=== PATIENT | female | born 1985 | race Caucasian/White ===

== ENCOUNTER 2018-07-13 21:30 | Emergency (ER) | payer SELFPAY ==
--- NOTE | 2018-07-13 21:49 | EDM.PDOC ---
ED HPI GENERAL MEDICAL PROBLEM - General Chief Complaint: Chest Pain Stated Complaint: NATALIYA JOHN Time Seen by Provider: 07/13/18 21:36 - History of Present Illness INITIAL COMMENTS - FREE TEXT/NARRATIVE: HISTORY AND PHYSICAL: History of present illness: Patient's a 32-year-old female who presents with concern of left clavicular pain she states is been over several weeks she is concerned about the persistence of this she denies trauma denies shortness of breath palpitations diaphoresis nausea vomiting or other complaints. Review of systems: As per history of present illness and below otherwise all systems reviewed and negative. Past medical history: As per history of present illness and as reviewed below otherwise noncontributory. Surgical history: As per history of present illness and as reviewed below otherwise noncontributory. Social history: No reported history of drug or alcohol abuse. Family history: As per history of present illness and as reviewed below otherwise noncontributory. Physical exam: HEENT: Atraumatic, normocephalic, pupils reactive, negative for conjunctival pallor or scleral icterus, mucous membranes moist, throat clear, neck supple, nontender, trachea midline. Lungs: Clear to auscultation, breath sounds equal bilaterally, chest nontender. Heart: S1S2, regular, negative for clicks, rubs, or JVD. Abdomen: Soft, nondistended, nontender. Negative for masses or hepatosplenomegaly. Negative for costovertebral tenderness. Pelvis: Stable nontender. Genitourinary: Deferred. Rectal: Deferred. Extremities: Atraumatic, negative for cords or calf pain. Neurovascular unremarkable. Neuro: Awake, alert, oriented. Cranial nerves II through XII unremarkable. Cerebellum unremarkable. Motor and sensory unremarkable throughout. Exam nonfocal. Diagnostics: Chest x-ray EKG Therapeutics: None Impression: #1 medical screening exam #2 left clavicle pain etiology be determined Definitive disposition and diagnosis as appropriate pending reevaluation and review of above. 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 History: Reports: None Neurological History: Reports: None Psychiatric History: Reports: Anxiety, Depression, Panic Attack, PTSD Endocrine/Metabolic History: Reports: None Hematologic History: Reports: None Immunologic History: Reports: None Oncologic (Cancer) History: Reports: None Dermatologic History: Reports: None - Past Surgical History Head Surgeries/Procedures: Reports: None HEENT Surgical History: Reports: None Cardiovascular Surgical History: Reports: None Respiratory Surgical History: Reports: None GI Surgical History: Reports: None Female Surgical History: Reports: None Endocrine Surgical History: Reports: None Neurological Surgical History: Reports: None 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 Surgical History: Reports: None Oncologic Surgical History: Reports: None Dermatological Surgical History: Reports: None Social & Family History - Family History Family Medical History: Noncontributory - Caffeine Use Caffeine Use: Reports: None ED ROS GENERAL - Review of Systems Review Of Systems: ROS reveals no pertinent complaints other than HPI. ED EXAM, GENERAL - Physical Exam Exam: See Below (See dictation) Course - Orders/Labs/Meds Orders: Active Orders 24 hr Category Date Time Status EKG Documentation Completion [RC] STAT Care 07/13/18 21:39 Active Chest 2V [CR] Stat Exams 07/13/18 21:39 Ordered HCG QUALITATIVE,URINE [URCHEM] Stat Lab 07/13/18 21:40 Ordered Departure - Departure Time of Disposition: 21:48 Disposition: Home, Self-Care 01 Condition: Good Clinical Impression: Encounter for medical screening examination, Pain of left clavicle - Discharge Information *PRESCRIPTION DRUG MONITORING PROGRAM REVIEWED*: Not Applicable *COPY OF PRESCRIPTION DRUG MONITORING REPORT IN PATIENT BEN: Not Applicable Referrals: PCP,None [Primary Care Provider] - Additional Instructions: The following information is given to patients seen in the emergency department who are being discharged to home. This information is to outline your options for follow-up care. We provide all patients seen in our emergency department with a follow-up referral. The need for follow-up, as well as the timing and circumstances, are variable depending upon the specifics of your emergency department visit. If you don't have a primary care physician on staff, we will provide you with a referral. We always advise you to contact your personal physician following an emergency department visit to inform them of the circumstance of the visit and for follow-up with them and/or the need for any referrals to a consulting specialist. The emergency department will also refer you to a specialist when appropriate. This referral assures that you have the opportunity for followup care with a specialist. All of these measure are taken in an effort to provide you with optimal care, which includes your followup. Under all circumstances we always encourage you to contact your private physician who remains a resource for coordinating your care. When calling for followup care, please make the office aware that this follow-up is from your recent emergency room visit. If for any reason you are refused follow-up, please contact the [facility] emergency department at and asked to speak to the emergency department charge nurse. [facility] [address] [place] [phone] /Vishnu as directed follow-up primary care call to schedule routine appointment return as needed as discussed - My Orders Last 24 Hours: My Active Orders 07/13/18 21:39 EKG Documentation Completion [RC] STAT Chest 2V [CR] Stat 07/13/18 21:40 HCG QUALITATIVE,URINE [URCHEM] Stat - Assessment/Plan Last 24 Hours: My Active Orders 07/13/18 21:39 EKG Documentation Completion [RC] STAT Chest 2V [CR] Stat 07/13/18 21:40 HCG QUALITATIVE,URINE [URCHEM] Stat
--- NOTE | 2018-07-15 14:10 | CR ---
EXAM DATE: 07/13/18 PATIENT'S AGE: 32 Patient: VINCE SCHNEIDER Facility: [place], [place] Site . Site : 1985 Study: XRay Chest [id number]/[id number] 10:12:37 PM Ordering Physician: Doctor Sterling Final Report: Indication: Chest pain Technique: PA and lateral views the chest were obtained. Comparison: None Findings: The heart is normal in size. The lungs are clear. No infiltrate, pleural effusion, or pneumothorax is identified. Impression: No acute cardiopulmonary process. Dictated by Kaley Aburto MD @ Jul 13 2018 10:19PM (Electronic Signature) Report Signed by Proxy. CONNIE
== END 2018-07-13 22:42 | disposition home or self-care (01) ==
LOC: MW.ED 21:30
DX: M25.512 Pain in left shoulder (principal)
CPT/HCPCS: 71046; 71046-26; 93005; 99285-25

== ENCOUNTER 2019-02-28 21:11 | Emergency (ER) | payer SELFPAY ==
[2019-02-28] MEDS ORDERED: LORazepam 0.5 MG Tab PO ONE (21:53)
--- NOTE | 2019-02-28 22:05 | EDM.PDOC ---
<Gypsy Lee - Last Filed: 02/28/19 23:41> ED HPI GENERAL MEDICAL PROBLEM - General Chief Complaint: Lower Extremity Injury/Pain Stated Complaint: PT LT LEG HURT Time Seen by Provider: 02/28/19 21:43 - Related Data Allergies Allergy/AdvReac Type Severity Reaction Status Date / Time aspirin Allergy Airway Verified 02/28/19 21:23 Tightness gentamicin Allergy Rash Verified 02/28/19 21:23 Penicillins Allergy Rash Verified 02/28/19 21:23 tramadol Allergy Nausea and Verified 02/28/19 21:23 Vomiting Home Meds: Home Meds Esomeprazole Magnesium [Nexium 24Hr] 1 tab PO BID 06/22/18 [History] Cyclobenzaprine [Flexeril] 10 mg PO DAILY 02/28/19 [History] Review of Systems - Review of Systems Review Of Systems: ROS reveals no pertinent complaints other than HPI. ED EXAM, GENERAL - Physical Exam Exam: See Below Course - Vital Signs Last Recorded V/S: Last Vital Signs Temp 36.3 C 02/28/19 21:24 Pulse 75 03/01/19 00:22 Resp 18 03/01/19 00:22 BP 142/82 H 03/01/19 00:22 Pulse Ox 100 03/01/19 00:22 - Orders/Labs/Meds Meds: Medications Discontinued Medications Generic Name Dose Route Start Last Admin Trade Name Lilliam PRN Reason Stop Dose Admin Lorazepam 0.5 mg 02/28/19 21:53 02/28/19 22:10 Ativan PO 02/28/19 21:54 0.5 mg ONETIME ONE Administration Departure - Departure Time of Disposition: 23:42 Disposition: Home, Self-Care 01 Clinical Impression: Thrombophlebitis - Discharge Information Instructions: Venous Thromboembolism Prevention Referrals: PCP,None [Primary Care Provider] - Forms: ED Department Discharge Additional Instructions: The following information is given to patients seen in the emergency department who are being discharged to home. This information is to outline your options for follow-up care. We provide all patients seen in our emergency department with a follow-up referral. The need for follow-up, as well as the timing and circumstances, are variable depending upon the specifics of your emergency department visit. If you don't have a primary care physician on staff, we will provide you with a referral. We always advise you to contact your personal physician following an emergency department visit to inform them of the circumstance of the visit and for follow-up with them and/or the need for any referrals to a consulting specialist. The emergency department will also refer you to a specialist when appropriate. This referral assures that you have the opportunity for follow-up care with a specialist. All of these measure are taken in an effort to provide you with optimal care, which includes your follow-up. Under all circumstances we always encourage you to contact your private physician who remains a resource for coordinating your care. When calling for follow-up care, please make the office aware that this follow-up is from your recent emergency room visit. If for any reason you are refused follow-up, please contact the [facility] Emergency Department at and asked to speak to the emergency department charge nurse. [facility] [address] [place] [address] [place] [address] 1. Rest, ice, elevate the affected extremity. You can apply ice and/or heat 15 minutes on, 15 minutes off. 2. Tylenol and/or Ibuprofen as directed for pain management or discomfort. 3. Follow up with your primary care provider as discussed. Return to the ED as needed and as discussed. <Nathalia Cabrera - Last Filed: 03/02/19 10:47> ED HPI GENERAL MEDICAL PROBLEM - General Source of Information: Reports: Patient History Limitations: Reports: No Limitations - History of Present Illness INITIAL COMMENTS - FREE TEXT/NARRATIVE: HISTORY AND PHYSICAL: History of present illness: Patient is a 33-year-old female who presents to the ED today with concern of right calf pain and swelling 2 days. Patient states that the pain isn't worse with warm water. Patient states she was trying to take a bath to alleviate the pain thinking it was a calf cramp, but the past wanted had made the pain worse. She describes the pain as throbbing. Patient states she is able to palpate a small area that hurts on her calf muscle. Patient denies any history of DVT or blood clot. Patient denies any injury to the area. Patient rates her pain a 7 out of 10. Patient has not taken anything for her discomfort at home. Patient denies fever, chills, chest pain, shortness of breath, or cough. Denies headache, neck stiff ness, change in vision, syncope, or near syncope. Denies nausea, vomiting, abdominal pain, diarrhea, constipation, or dysuria. Has not noted any blood in urine or stool. Patient has been eating and drinking appropriately. Review of systems: As per history of present illness and below otherwise all systems reviewed and negative. Past medical history: As per history of present illness and as reviewed below otherwise noncontributory. Surgical history: As per history of present illness and as reviewed below otherwise noncontributory. Social history: See social history for further information Family history: As per history of present illness and as reviewed below otherwise noncontributory. Physical exam: General: Patient is alert, oriented, and in no acute distress. Patient sitting comfortably on exam table but is anxious appearing. HEENT: Atraumatic, normocephalic, pupils equal and reactive bilaterally, negative for conjunctival pallor or scleral icterus, mucous membranes moist, TMs normal bilaterally, throat clear, neck supple, nontender, trachea midline. No drooling or trismus noted. No meningeal signs. No hot potato voice noted. Lungs: Clear to auscultation, breath sounds equal bilaterally, chest nontender. Heart: S1S2, regular rate and rhythm without overt murmur Abdomen: Soft, nondistended, nontender. Negative for masses or hepatosplenomegaly. Negative for costovertebral tenderness. Pelvis: Stable nontender. Genitourinary: Deferred. Rectal: Deferred. Skin: Intact, warm, dry. No lesions or rashes noted. Extremities: Atraumatic, Neurovascular unremarkable. There is a 2cm round area of inflammation with pain to palpation without erythema of the right mid calf area. Dorsalis pedis and posterior tibial pulses are grossly intact. Capillary refill less than 2 seconds. Neuro: Awake, alert, oriented. Cranial nerves II through XII unremarkable. Cerebellum unremarkable. Motor and sensory unremarkable throughout. Exam nonfocal. Notes: On exam, patient does appear to have a superficial thrombophlebitis. Will do imaging today. Dr. Lee has assumed care of this patient and will follow all remaining diagnostics and disposition for patient. Diagnostics: Lower extremity venous doppler ultrasound, right Therapeutics: Ativan Prescription: None Impression: Thrombophlebitis Plan: 1. Rest, ice, elevate the affected extremity. You can apply ice and/or heat 15 minutes on, 15 minutes off. 2. Tylenol and/or Ibuprofen as directed for pain management or discomfort. 3. Follow up with your primary care provider as discussed. Return to the ED as needed and as discussed. Definitive disposition and diagnosis as appropriate pending reevaluation and review of above. 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 History: Reports: None Neurological History: Reports: None Psychiatric History: Reports: Anxiety, Depression, Panic Attack, PTSD Endocrine/Metabolic History: Reports: None Hematologic History: Reports: None Immunologic History: Reports: None Oncologic (Cancer) History: Reports: None Dermatologic History: Reports: None - Infectious Disease History Infectious Disease History: Reports: None - Past Surgical History Head Surgeries/Procedures: Reports: None HEENT Surgical History: Reports: Adenoidectomy, Oral Surgery, Tonsillectomy Cardiovascular Surgical History: Reports: None Respiratory Surgical History: Reports: None GI Surgical History: Reports: None Female Surgical History: Reports: Tubal Ligation Endocrine Surgical History: Reports: None Neurological Surgical History: Reports: None 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 Surgical History: Reports: None Oncologic Surgical History: Reports: None Dermatological Surgical History: Reports: None Social & Family History - Family History Family Medical History: Noncontributory - Tobacco Use Smoking Status *Q: Never Smoker - Caffeine Use Caffeine Use: Reports: Coffee, Soda - Recreational Drug Use Recreational Drug Use: No Review of Systems - Review of Systems Review Of Systems: ROS reveals no pertinent complaints other than HPI. ED EXAM, GENERAL - Physical Exam Exam: See Below (See dictation)
--- NOTE | 2019-02-28 23:38 | US ---
INDICATION: Leg pain and swelling TECHNIQUE: Ultrasound venous duplex lower right extremity. Compression venous exam was performed using ruth-scale, color Doppler, and spectral Doppler imaging. COMPARISON: None. FINDINGS: Sonographic imaging demonstrates the right common femoral, deep femoral, superficial femoral, popliteal, posterior tibial and greater saphenous to be fully compressible with normal color Doppler blood flow. IMPRESSION: Normal right lower extremity venous ultrasound, no sign of deep venous thrombosis. Dictated by Konrad Sotelo MD @ Feb 28 2019 11:29PM Signed by Dr. Konrad Sotelo @ Feb 28 2019 11:36PM
== END 2019-03-01 00:23 | disposition home or self-care (01) ==
LOC: MW.ED 21:11
DX: I80.3 Phlebitis and thrombophlebitis of lower extremities, unspecified (principal); Z88.0 Allergy status to penicillin; Z88.8 Allergy status to other drugs, medicaments and biological substances; Z88.1 Allergy status to other antibiotic agents
CPT/HCPCS: 93971; 99283; A9270

== ENCOUNTER 2019-07-15 15:23 | Emergency (ER) | payer OTHER ==
--- NOTE | 2019-07-15 15:31 | EDM.PDOC ---
ED HPI GENERAL MEDICAL PROBLEM - General Chief Complaint: Upper Extremity Injury/Pain Stated Complaint: FINGER PAIN Time Seen by Provider: 07/15/19 15:30 Source of Information: Reports: Patient History Limitations: Reports: No Limitations - History of Present Illness INITIAL COMMENTS - FREE TEXT/NARRATIVE: HISTORY AND PHYSICAL: History of present illness: Patient is a 33-year-old female who presents to the emergency room today with complaints of left fifth distal digit pain. She states while at work to a case of soda had fallen, resulting in a crush injury. Does have some early bruising noted to the distal tip of the finger. Denies any other extremity involvement. Has no systemic complaints. Review of systems: As per history of present illness and below otherwise all systems reviewed and negative. Past medical history: As per history of present illness and as reviewed below otherwise noncontributory. Surgical history: As per history of present illness and as reviewed below otherwise noncontributory. Social history: See social history for further information Family history: As per history of present illness and as reviewed below otherwise noncontributory. Physical exam: General: Well-developed and well-nourished 33-year-old female. Alert and oriented. Nontoxic appearing and in no acute distress. HEENT: Atraumatic, normocephalic, pupils equal and reactive bilaterally, negative for conjunctival pallor or scleral icterus, mucous membranes moist, trachea midline. No drooling or trismus noted. No meningeal signs. No hot potato voice noted. Lungs: Clear to auscultation, breath sounds equal bilaterally, chest nontender. Heart: S1S2, regular rate and rhythm without overt murmur Abdomen: Soft, nondistended, nontender. Negative for masses. Skin: Early bruising noted to the distal tip of the left fifth digit. Nail bed is intact. No fluid or blood collection under the nail. Otherwise skin is Intact , warm, dry. No lesions or rashes noted. Extremities: Pain with palpation to the DIP to the distal tip of the left fifth digit. moves all extremities per self without difficulty or deficits. Neurovascular unremarkable. Neuro: Awake, alert, oriented. Cranial nerves II through XII unremarkable. Cerebellum unremarkable. Motor and sensory unremarkable throughout. Exam nonfocal. Notes: X-ray shows tiny lucency at the tip of the tuft on the fifth distal phalanx. A cage splint was applied for comfort purposes. Supportive care measures were reviewed and discussed. Voices understanding and is agreeable to plan of care. Denies any further questions or concerns at this time. Diagnostics: X-ray Therapeutics: Spoon Splint Prescription: Tylenol #3 (#15) Impression: Tuft Fracture Plan: 1. Rest, ice, elevate the affected extremity. Please wear the splint as directed. 2. Tylenol and/or Ibuprofen as needed for pain management. 3. Follow up with the Orthopedic provider as we discussed. Return to the ED as needed and as discussed. Definitive disposition and diagnosis as appropriate pending reevaluation and review of above. Onset: Today left fifth digit Pain Score (Numeric/FACES): 8 - Related Data Allergies Allergy/AdvReac Type Severity Reaction Status Date / Time aspirin Allergy Airway Verified 07/15/19 15:34 Tightness gentamicin Allergy Rash Verified 07/15/19 15:34 Penicillins Allergy Rash Verified 07/15/19 15:34 tramadol Allergy Nausea and Verified 07/15/19 15:34 Vomiting Home Meds: Home Meds Esomeprazole Magnesium [Nexium 24Hr] 1 tab PO BID 06/22/18 [History] Cyclobenzaprine [Flexeril] 0.5 tab PO DAILY 02/28/19 [History] Acetaminophen with Codeine [Tylenol with Codeine #3 Tablet] 1 each PO Q6HR PRN # 15 tablet 07/15/19 [Rx] Past Medical History HEENT History: Reports: None Cardiovascular History: Reports: None Respiratory History: Reports: None Gastrointestinal History: Reports: GERD Genitourinary History: Reports: None [employer]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 History: Reports: None Neurological History: Reports: None Psychiatric History: Reports: Anxiety, Depression, Panic Attack, PTSD Endocrine/Metabolic History: Reports: None Hematologic History: Reports: None Immunologic History: Reports: None Oncologic (Cancer) History: Reports: None Dermatologic History: Reports: None - Infectious Disease History Infectious Disease History: Reports: None - Past Surgical History Head Surgeries/Procedures: Reports: None HEENT Surgical History: Reports: Adenoidectomy, Oral Surgery, Tonsillectomy Cardiovascular Surgical History: Reports: None Respiratory Surgical History: Reports: None GI Surgical History: Reports: None Female Surgical History: Reports: Tubal Ligation Endocrine Surgical History: Reports: None Neurological Surgical History: Reports: None 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 Surgical History: Reports: None Oncologic Surgical History: Reports: None Dermatological Surgical History: Reports: None Social & Family History - Family History Family Medical History: Noncontributory - Caffeine Use Caffeine Use: Reports: Coffee, Soda Review of Systems - Review of Systems Review Of Systems: ROS reveals no pertinent complaints other than HPI. ED EXAM, GENERAL - Physical Exam Exam: See Below (See dictation) Course - Vital Signs Last Recorded V/S: Last Vital Signs Temp 96.2 F 07/15/19 15:34 Pulse 84 07/15/19 15:34 Resp 18 07/15/19 15:34 BP 142/97 H 07/15/19 15:34 Pulse Ox 98 07/15/19 15:34 - Orders/Labs/Meds Orders: Active Orders 24 hr Category Date Time Status Fingers Fifth Digit Lt F4 [CR] Stat Exams 07/15/19 15:39 Taken DME for Discharge [COMM] Stat Oth 07/15/19 16:19 Ordered Departure - Departure Time of Disposition: 16:19 Disposition: Home, Self-Care 01 Clinical Impression: Crush injury, Closed fracture of tuft of distal phalanx of finger - Discharge Information Prescriptions: Acetaminophen with Codeine [Tylenol with Codeine #3 Tablet] 1 each PO Q6HR PRN # 15 tablet PRN Reason: Pain Instructions: Crush Injury of the Hand, [id number] Referrals: PCP,Unknown [Primary Care Provider] - Forms: ED Department Discharge Additional Instructions: The following information is given to patients seen in the emergency department who are being discharged to home. This information is to outline your options for follow-up care. We provide all patients seen in our emergency department with a follow-up referral. The need for follow-up, as well as the timing and circumstances, are variable depending upon the specifics of your emergency department visit. If you don't have a primary care physician on staff, we will provide you with a referral. We always advise you to contact your personal physician following an emergency department visit to inform them of the circumstance of the visit and for follow-up with them and/or the need for any referrals to a consulting specialist. The emergency department will also refer you to a specialist when appropriate. This referral assures that you have the opportunity for follow-up care with a specialist. All of these measure are taken in an effort to provide you with optimal care, which includes your follow-up. Under all circumstances we always encourage you to contact your private physician who remains a resource for coordinating your care. When calling for follow-up care, please make the office aware that this follow-up is from your recent emergency room visit. If for any reason you are refused follow-up, please contact the [facility] Emergency Department at and asked to speak to the emergency department charge nurse. [facility] [address] [place] [id number] [place] [address] 1. Rest, ice, elevate the affected extremity. Please wear the splint as directed. 2. Tylenol and/or Ibuprofen as needed for pain management. 3. Follow up with the Orthopedic provider as we discussed. Return to the ED as needed and as discussed. - My Orders Last 24 Hours: My Active Orders 07/15/19 15:39 Fingers Fifth Digit Lt F4 [CR] Stat 07/15/19 16:19 DME for Discharge [COMM] Stat - Assessment/Plan Last 24 Hours: My Active Orders 07/15/19 15:39 Fingers Fifth Digit Lt F4 [CR] Stat 07/15/19 16:19 DME for Discharge [COMM] Stat
[2019-07-15] MEDS ORDERED: Acetaminophen/HYDROcodone 325-5 MG Tab PO ONE (16:41)
--- NOTE | 2019-07-15 16:51 | CR ---
Indication: Injury Technique: Three views of the left 5th digit Comparison: None available Findings: Bones: A tiny lucency at the tip of the tuft of the 5th distal phalanx consistent with a nondisplaced fracture. A small osseous protuberance in the distal aspect of the distal phalanx could be projectional. No dislocation. Joint spaces: Unremarkable. Soft tissues: Unremarkable. Impression: A small fracture at the tip of the 5th distal phalanx. Dictated by Eros Khan MD @ 07/15/2019 4:32:32 PM Dictated by: Eros Khan MD @ 07/15/2019 16:33:19 (Electronically Signed)
== END 2019-07-15 16:47 | disposition home or self-care (01) ==
LOC: MW.ED 15:23
DX: S62.637A Displaced fracture of distal phalanx of left little finger, initial encounter for closed fracture (principal); K21.9 Gastro-esophageal reflux disease without esophagitis; Z88.6 Allergy status to analgesic agent; Z88.0 Allergy status to penicillin; Z88.5 Allergy status to narcotic agent; Z88.1 Allergy status to other antibiotic agents; Z79.899 Other long term (current) drug therapy; W20.8XXA Other cause of strike by thrown, projected or falling object, initial encounter; Y99.0 Civilian activity done for income or pay
CPT/HCPCS: 73140; 99283; A9270; 99282

== ENCOUNTER 2019-08-25 20:06 | Emergency (ER) | payer OTHER ==
[2019-08-25] MEDS ORDERED: Ibuprofen 800 MG Tab PO ONE (20:21)
--- NOTE | 2019-08-25 20:27 | EDM.PDOC ---
ED HPI GENERAL MEDICAL PROBLEM - General Chief Complaint: Lower Extremity Injury/Pain Stated Complaint: FELL AND HURT RIGHT ANKLE Time Seen by Provider: 08/25/19 20:07 - History of Present Illness INITIAL COMMENTS - FREE TEXT/NARRATIVE: HISTORY AND PHYSICAL: History of present illness: Patient is a 33-year-old female who presents from her job where she misstepped getting off a 1 foot podium and rolled her ankle falling to the ground. She says she heard a pop at her right ankle and there is swelling there and she has pain localized to that region. She did not hit her head pass out or black out and has no upper extremity complaints and no proximal hip thigh pain. She does have a small abrasion on her right knee but she says she is not concerned about that and her knee does not hurt. She has no numbness or tingling in her distal foot or toes and was in her usual state of good health with no systemic issues when this event occurred. She has a history of a bilateral tubal ligation and denies . She did not take any pain medication prior to coming here. The patient denies any head neck or back pain. Review of systems: As per history of present illness and below otherwise all systems reviewed and negative. Past medical history: As per history of present illness and as reviewed below otherwise noncontributory. Surgical history: As per history of present illness and as reviewed below otherwise noncontributory. Social history: No reported history of drug or alcohol abuse. Family history: As per history of present illness and as reviewed below otherwise noncontributory. Physical exam: General: Well-developed well-nourished mildly overweight female who is nontoxic and vital signs were noted by me. HEENT: Atraumatic, normocephalic, negative for conjunctival pallor or scleral icterus, mucous membranes moist, throat clear, neck supple, nontender, trachea midline. Lungs: Clear to auscultation, breath sounds equal bilaterally, chest nontender. Heart: S1S2, regular, rate and rhythm no overt murmurs Abdomen: Soft, nondistended, nontender. NABS Pelvis: Stable nontender. No lateral hip tenderness on the right Genitourinary: Deferred. Rectal: Deferred. Extremities: Atraumatic full range of motion of all extremities with the exception of the right lateral ankle where there is diffuse soft tissue swelling and tenderness. The medial ankle has no swelling or deformity and the alignment appears to be intact at the ankle. There is no proximal tib-fib knee thigh or hip tenderness on the right and there is a superficial abrasion at dorsal aspect of the patella area without bony defect soft tissue swelling ecchymosis or deformity. Patient has no tenderness at the right knee. The distal foot including the fifth metatarsal is nontender without defects or deformities as are the toes ball of the foot and calcaneus. Neurovascular unremarkable. Neuro: Awake, alert, oriented. Cranial nerves II through XII unremarkable. Cerebellum unremarkable. Motor and sensory unremarkable throughout. Exam nonfocal. Diagnostics: X-ray right ankle Therapeutics: Ibuprofen, ortho boot and crutches Impression: Right ankle injury Definitive disposition and diagnosis as appropriate pending reevaluation and review of above. - Related Data Allergies Allergy/AdvReac Type Severity Reaction Status Date / Time aspirin Allergy Airway Verified 08/25/19 20:09 Tightness gentamicin Allergy Rash Verified 08/25/19 20:09 Penicillins Allergy Rash Verified 08/25/19 20:09 tramadol Allergy Nausea and Verified 08/25/19 20:09 Vomiting Home Meds: Home Meds Esomeprazole Magnesium [Nexium 24Hr] 20 tab PO BID 06/22/18 [History] Cyclobenzaprine [Flexeril] 5 mg PO DAILY 02/28/19 [History] Past Medical History HEENT History: Reports: None Cardiovascular History: Reports: None Respiratory History: Reports: None Gastrointestinal History: Reports: GERD Genitourinary History: Reports: None 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 History: Reports: None Neurological History: Reports: None Psychiatric History: Reports: Anxiety, Depression, Panic Attack, PTSD Endocrine/Metabolic History: Reports: None Hematologic History: Reports: None Immunologic History: Reports: None Oncologic (Cancer) History: Reports: None Dermatologic History: Reports: None - Infectious Disease History Infectious Disease History: Reports: None - Past Surgical History Head Surgeries/Procedures: Reports: None HEENT Surgical History: Reports: Adenoidectomy, Oral Surgery, Tonsillectomy Cardiovascular Surgical History: Reports: None Respiratory Surgical History: Reports: None GI Surgical History: Reports: None Female Surgical History: Reports: Tubal Ligation Endocrine Surgical History: Reports: None Neurological Surgical History: Reports: None 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 Surgical History: Reports: None Oncologic Surgical History: Reports: None Dermatological Surgical History: Reports: None Social & Family History - Family History Family Medical History: Noncontributory - Tobacco Use Smoking Status *Q: Never Smoker - Caffeine Use Caffeine Use: Reports: Coffee, Soda - Recreational Drug Use Recreational Drug Use: No Review of Systems - Review of Systems Review Of Systems: ROS reveals no pertinent complaints other than HPI. ED EXAM, GENERAL - Physical Exam Exam: See Below (see Dictation) Course - Vital Signs Last Recorded V/S: Last Vital Signs Temp 36.1 C 08/25/19 20:09 Pulse 103 H 08/25/19 20:09 Resp 18 08/25/19 20:09 BP 137/87 08/25/19 20:09 Pulse Ox 94 L 08/25/19 20:09 - Orders/Labs/Meds Orders: Active Orders 24 hr Category Date Time Status DME for Discharge [COMM] Stat Oth 08/25/19 20:59 Ordered Meds: Medications Discontinued Medications Generic Name Dose Route Start Last Admin Trade Name Freq PRN Reason Stop Dose Admin Ibuprofen 800 mg 08/25/19 20:21 08/25/19 20:28 Motrin PO 08/25/19 20:22 800 mg ONETIME ONE Administration Departure - Departure Time of Disposition: 21:00 Disposition: Home, Self-Care 01 Condition: Good Clinical Impression: Right ankle injury Qualifiers: Encounter type: initial encounter Qualified Code(s): S99.911A - Unspecified injury of right ankle, initial encounter - Discharge Information Referrals: Vickey Christianson MD [Primary Care Provider] - Forms: ED Department Discharge Additional Instructions: The following information is given to patients seen in the emergency department who are being discharged to home. This information is to outline your options for follow-up care. We provide all patients seen in our emergency department with a follow-up referral. The need for follow-up, as well as the timing and circumstances, are variable depending upon the specifics of your emergency department visit. If you don't have a primary care physician on staff, we will provide you with a referral. We always advise you to contact your personal physician following an emergency department visit to inform them of the circumstance of the visit and for follow-up with them and/or the need for any referrals to a consulting specialist. The emergency department will also refer you to a specialist when appropriate. This referral assures that you have the opportunity for followup care with a specialist. All of these measure are taken in an effort to provide you with optimal care, which includes your followup. Under all circumstances we always encourage you to contact your private physician who remains a resource for coordinating your care. When calling for followup care, please make the office aware that this follow-up is from your recent emergency room visit. If for any reason you are refused follow-up, please contact the [facility] emergency department at and ask to speak to the emergency department charge nurse. [facility] - [facility] Professional Building [address] [place] [address] Dr Núñez, Orthopedist [facility] [address] [place] [address] Dr Garcia - Dr Candelario - Dr [facility] [address] [place] [address] [facility] [address] [place] [address] Ice and elevate the area and do not weight-bear until you're followed up in the clinic. Please call our orthopedics clinic to see if we have coverage for follow -up and if not use the other resources given to above for follow-up care. Use [id number] Tylenol and ibuprofen for pain management and wear the orthopedic you have been given at all times loosening or removing at sleep time his crutches and do not weight-bear until you are followed up. Return to ER as needed and as discussed - My Orders Last 24 Hours: My Active Orders 08/25/19 20:59 DME for Discharge [COMM] Stat - Assessment/Plan Last 24 Hours: My Active Orders 08/25/19 20:59 DME for Discharge [COMM] Stat
--- NOTE | 2019-08-25 20:53 | CR ---
Indication: Fall Technique: Three views of the right ankle were obtained. Comparison: None Findings: The ankle mortise is intact. The talar dome is intact. A small plantar calcaneal spur is identified. No fracture or subluxation is identified. Impression: No acute identified. Dictated by Kaley Aburto MD @ Aug 25 2019 8:49PM Signed by Dr. Kaley Aburto @ Aug 25 2019 8:50PM
== END 2019-08-25 21:21 | disposition home or self-care (01) ==
LOC: MW.ED 20:06
DX: S99.911A Unspecified injury of right ankle, initial encounter (principal); S80.211A Abrasion, right knee, initial encounter; K21.9 Gastro-esophageal reflux disease without esophagitis; Z88.0 Allergy status to penicillin; Z88.1 Allergy status to other antibiotic agents; Z88.5 Allergy status to narcotic agent; Z88.6 Allergy status to analgesic agent; W17.89XA Other fall from one level to another, initial encounter; X50.1XXA Overexertion from prolonged static or awkward postures, initial encounter; Y93.89 Activity, other specified
CPT/HCPCS: 73610; 99283; A9270

== ENCOUNTER 2019-10-29 22:55 | Emergency (ER) | payer SELFPAY ==
--- NOTE | 2019-10-29 23:07 | EDM.PDOC ---
ED HPI GENERAL MEDICAL PROBLEM - General Chief Complaint: Chest Pain Stated Complaint: CHEST DISCOMFORT Time Seen by Provider: 10/29/19 23:01 - History of Present Illness INITIAL COMMENTS - FREE TEXT/NARRATIVE: HISTORY AND PHYSICAL: History of present illness: Patient is a 34-year-old white female presents with concern chest pain 3 days his vaguely described without associated shortness breath palpitations nausea vomiting or diaphoresis denies trauma Review of systems: As per history of present illness and below otherwise all systems reviewed and negative. Past medical history: As per history of present illness and as reviewed below otherwise noncontributory. Surgical history: As per history of present illness and as reviewed below otherwise noncontributory. Social history: No reported history of drug or alcohol abuse. Family history: As per history of present illness and as reviewed below otherwise noncontributory. Physical exam: HEENT: Atraumatic, normocephalic, pupils reactive, negative for conjunctival pallor or scleral icterus, mucous membranes moist, throat clear, neck supple, nontender, trachea midline. Lungs: Clear to auscultation, breath sounds equal bilaterally, chest nontender. Heart: S1S2, regular, negative for clicks, rubs, or JVD. Abdomen: Soft, nondistended, nontender. Negative for masses or hepatosplenomegaly. Negative for costovertebral tenderness. Pelvis: Stable nontender. Genitourinary: Deferred. Rectal: Deferred. Extremities: Atraumatic, negative for cords or calf pain. Neurovascular unremarkable. Neuro: Awake, alert, oriented. Cranial nerves II through XII unremarkable. Cerebellum unremarkable. Motor and sensory unremarkable throughout. Exam nonfocal. Diagnostics: CBC CMP troponin PT/INR chest x-ray EKG Therapeutics: IV O2 monitor Impression: 1 atypical chest pain Definitive disposition and diagnosis as appropriate pending reevaluation and review of above. chest Pain Score (Numeric/FACES): 7 - Related Data Allergies Allergy/AdvReac Type Severity Reaction Status Date / Time aspirin Allergy Airway Verified 10/29/19 22:57 Tightness gentamicin Allergy Rash Verified 10/29/19 22:57 Penicillins Allergy Rash Verified 10/29/19 22:57 tramadol Allergy Nausea and Verified 10/29/19 22:57 Vomiting Home Meds: Home Meds Esomeprazole Magnesium [Nexium 24Hr] 20 tab PO BID 06/22/18 [History] Past Medical History HEENT History: Reports: None Cardiovascular History: Reports: None Respiratory History: Reports: None Gastrointestinal History: Reports: GERD Genitourinary History: Reports: None 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 History: Reports: None 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 History: Reports: None Neurological History: Reports: None Psychiatric History: Reports: Anxiety, Depression, Panic Attack, PTSD Endocrine/Metabolic History: Reports: None Hematologic History: Reports: None Immunologic History: Reports: None Oncologic (Cancer) History: Reports: None Dermatologic History: Reports: None - Infectious Disease History Infectious Disease History: Reports: Chicken Pox - Past Surgical History Head Surgeries/Procedures: Reports: None HEENT Surgical History: Reports: Adenoidectomy, Oral Surgery, Tonsillectomy Cardiovascular Surgical History: Reports: None Respiratory Surgical History: Reports: None GI Surgical History: Reports: None Female Surgical History: Reports: Tubal Ligation Endocrine Surgical History: Reports: None Neurological Surgical History: Reports: None 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 Surgical History: Reports: None Oncologic Surgical History: Reports: None Dermatological Surgical History: Reports: None Social & Family History - Family History Family Medical History: Noncontributory - Caffeine Use Caffeine Use: Reports: Coffee, Soda - Recreational Drug Use Recreational Drug Use: No ED ROS GENERAL - Review of Systems Review Of Systems: Comprehensive ROS is negative, except as noted in HPI. ED EXAM, GENERAL - Physical Exam Exam: See Below (Dictation) Course - Vital Signs Last Recorded V/S: Last Vital Signs Temp 35.7 C 10/29/19 22:58 Pulse 83 10/29/19 22:58 Resp 18 10/29/19 22:58 BP 146/87 H 10/29/19 22:58 Pulse Ox 100 10/29/19 22:58 - Orders/Labs/Meds Orders: Active Orders 24 hr Category Date Time Status EKG Documentation Completion [RC] STAT Care 10/29/19 22:56 Active Labs: Laboratory Tests 10/29/19 10/29/19 10/29/19 Range/Units 23:02 23:02 23:02 WBC 7.57 (4.0-11.0) K/uL RBC 4.91 (4.30-5.90) M/uL Hgb 13.8 (12.0-16.0) g/dL Hct 42.2 (36.0-46.0) % MCV 85.9 (80.0-98.0) fL MCH 28.1 (27.0-32.0) pg MCHC 32.7 (31.0-37.0) g/dL RDW Std Deviation 44.3 (28.0-62.0) fl RDW Coeff of Ashutosh 14 (11.0-15.0) % Plt Count 266 (150-400) K/uL MPV 11.10 (7.40-12.00) fL Neut % (Auto) 40.9 L (48.0-80.0) % Lymph % (Auto) 48.5 H (16.0-40.0) % [place] % (Auto) 8.5 (0.0-15.0) % Eos % (Auto) 1.8 (0.0-7.0) % Baso % (Auto) 0.3 (0.0-1.5) % Neut # (Auto) 3.1 (1.4-5.7) K/uL Lymph # (Auto) 3.7 H (0.6-2.4) K/uL [place] # (Auto) 0.6 (0.0-0.8) K/uL Eos # (Auto) 0.1 (0.0-0.7) K/uL Baso # (Auto) 0.0 (0.0-0.1) K/uL Nucleated RBC % 0.0 /100WBC Nucleated RBCs # 0 K/uL INR 0.92 Sodium 143 (136-145) mmol/L Potassium 3.8 (3.5-5.1) mmol/L Chloride 108 H (98-107) mmol/L Carbon Dioxide 28.2 (21.0-32.0) mmol/L BUN 12 (7.0-18.0) mg/dL Creatinine 0.8 (0.6-1.0) mg/dL Est Cr Clr Drug Dosing 78.37 mL/min Estimated GFR (MDRD) > 60.0 ml/min Glucose 115 H (74-106) mg/dL Calcium 8.6 (8.5-10.1) mg/dL Total Bilirubin 0.3 (0.2-1.0) mg/dL AST 23 (15-37) IU/L ALT 68 H (14-63) IU/L Alkaline Phosphatase 76 (46-116) U/L Troponin I < 0.050 (0.000-0.056) ng/mL Total Protein 7.2 (6.4-8.2) g/dL Albumin 3.8 (3.4-5.0) g/dL Globulin 3.4 (2.6-4.0) g/dL Albumin/Globulin Ratio 1.1 (0.9-1.6) Urine Color Urine Appearance Urine pH (5.0-8.0) Ur Specific [place] (1.001-1.035) Urine Protein (NEGATIVE) mg/dL Urine Glucose (UA) (NEGATIVE) mg/dL Urine Ketones (NEGATIVE) mg/dL Urine Occult Blood (NEGATIVE) Urine Nitrite (NEGATIVE) Urine Bilirubin (NEGATIVE) Urine Urobilinogen (<2.0) EU/dL Ur Leukocyte Esterase (NEGATIVE) 10/29/19 Range/Units 23:03 WBC (4.0-11.0) K/uL RBC (4.30-5.90) M/uL Hgb (12.0-16.0) g/dL Hct (36.0-46.0) % MCV (80.0-98.0) fL MCH (27.0-32.0) pg MCHC (31.0-37.0) g/dL RDW Std Deviation (28.0-62.0) fl RDW Coeff of Ashutosh (11.0-15.0) % Plt Count (150-400) K/uL MPV (7.40-12.00) fL Neut % (Auto) (48.0-80.0) % Lymph % (Auto) (16.0-40.0) % [place] % (Auto) (0.0-15.0) % Eos % (Auto) (0.0-7.0) % Baso % (Auto) (0.0-1.5) % Neut # (Auto) (1.4-5.7) K/uL Lymph # (Auto) (0.6-2.4) K/uL [place] # (Auto) (0.0-0.8) K/uL Eos # (Auto) (0.0-0.7) K/uL Baso # (Auto) (0.0-0.1) K/uL Nucleated RBC % /100WBC Nucleated RBCs # K/uL INR Sodium (136-145) mmol/L Potassium (3.5-5.1) mmol/L Chloride (98-107) mmol/L Carbon Dioxide (21.0-32.0) mmol/L BUN (7.0-18.0) mg/dL Creatinine (0.6-1.0) mg/dL Est Cr Clr Drug Dosing mL/min Estimated GFR (MDRD) ml/min Glucose (74-106) mg/dL Calcium (8.5-10.1) mg/dL Total Bilirubin (0.2-1.0) mg/dL AST (15-37) IU/L ALT (14-63) IU/L Alkaline Phosphatase (46-116) U/L Troponin I (0.000-0.056) ng/mL Total Protein (6.4-8.2) g/dL Albumin (3.4-5.0) g/dL Globulin (2.6-4.0) g/dL Albumin/Globulin Ratio (0.9-1.6) Urine Color YELLOW Urine Appearance CLEAR Urine pH 6.0 (5.0-8.0) Ur Specific [place] 1.025 (1.001-1.035) Urine Protein NEGATIVE (NEGATIVE) mg/dL Urine Glucose (UA) NEGATIVE (NEGATIVE) mg/dL Urine Ketones NEGATIVE (NEGATIVE) mg/dL Urine Occult Blood NEGATIVE (NEGATIVE) Urine Nitrite NEGATIVE (NEGATIVE) Urine Bilirubin NEGATIVE (NEGATIVE) Urine Urobilinogen 1.0 (<2.0) EU/dL Ur Leukocyte Esterase NEGATIVE (NEGATIVE) Departure - Departure Time of Disposition: 00:20 Disposition: Home, Self-Care 01 Condition: Good Clinical Impression: Atypical chest pain - Discharge Information Referrals: PCP,None [Primary Care Provider] - Forms: ED Department Discharge Additional Instructions: The following information is given to patients seen in the emergency department who are being discharged to home. This information is to outline your options for follow-up care. We provide all patients seen in our emergency department with a follow-up referral. The need for follow-up, as well as the timing and circumstances, are variable depending upon the specifics of your emergency department visit. If you don't have a primary care physician on staff, we will provide you with a referral. We always advise you to contact your personal physician following an emergency department visit to inform them of the circumstance of the visit and for follow-up with them and/or the need for any referrals to a consulting specialist. The emergency department will also refer you to a specialist when appropriate. This referral assures that you have the opportunity for followup care with a specialist. All of these measure are taken in an effort to provide you with optimal care, which includes your followup. Under all circumstances we always encourage you to contact your private physician who remains a resource for coordinating your care. When calling for followup care, please make the office aware that this follow-up is from your recent emergency room visit. If for any reason you are refused follow-up, please contact the [facility] emergency department at and asked to speak to the emergency department charge nurse. Follow-up primary medical doctor return as needed as discussed Sepsis Event Note - Evaluation Sepsis Screening Result: No Definite Risk - Focused Exam Vital Signs: Vital Signs Temp Pulse Resp BP Pulse Ox 10/29/19 22:58 35.7 C 83 18 146/87 H 100 Date Exam was Performed: 10/30/19 Time Exam was Performed: 00:20 - My Orders Last 24 Hours: My Active Orders 10/29/19 22:56 EKG Documentation Completion [RC] STAT - Assessment/Plan Last 24 Hours: My Active Orders 10/29/19 22:56 EKG Documentation Completion [RC] STAT
[2019-10-29 23:34] LABS: BLOOD UREA NITROGEN,BUN 12 mg/dL (7.0-18.0); CARBON DIOXIDE,CO2 28.2 mmol/L (21.0-32.0); CHLORIDE,CL 108 mmol/L (98-107); GLUCOSE RANDOM 115 mg/dL (74-106); POTASSIUM,K 3.8 mmol/L (3.5-5.1); SODIUM,NA 143 mmol/L (136-145)
--- NOTE | 2019-10-29 23:35 | CR ---
INDICATION: Chest pain TECHNIQUE: Frontal view of the chest. COMPARISON: Chest two views 07/13/2018 FINDINGS/IMPRESSION: The lungs are clear. There is no sizable pleural effusion or pneumothorax. The cardiomediastinal silhouette is normal. The visualized osseous structures are unremarkable. Dictated by Ata Maki MD @ Oct 29 2019 11:34PM Signed by Dr. Ata Maki @ Oct 29 2019 11:34PM
== END 2019-10-30 00:43 | disposition home or self-care (01) ==
LOC: MW.ED 22:55
DX: R07.89 Other chest pain (principal); K21.9 Gastro-esophageal reflux disease without esophagitis; Z88.6 Allergy status to analgesic agent; Z88.1 Allergy status to other antibiotic agents; Z88.0 Allergy status to penicillin; Z88.5 Allergy status to narcotic agent; Z79.899 Other long term (current) drug therapy
CPT/HCPCS: 36415; 71045; 71045-26; 80053; 81003; 84484; 85025; 85610; 93005; 99283; 99285-25

== ENCOUNTER 2020-01-08 22:20 | Emergency (ER) | payer SELFPAY ==
[2020-01-08] MEDS ORDERED: diphenhydrAMINE 50 MG/ML SDV IVPUSH ONE (22:49)
[2020-01-08] MEDS ORDERED: Metoclopramide 10 MG/2 ML SDV IVPUSH ONE (22:50)
--- NOTE | 2020-01-08 22:56 | EDM.PDOC ---
ED HPI GENERAL MEDICAL PROBLEM - General Chief Complaint: Headache Stated Complaint: HEADACHE Time Seen by Provider: 01/08/20 22:52 Source of Information: Reports: Patient, Significant Other - History of Present Illness INITIAL COMMENTS - FREE TEXT/NARRATIVE: The patient is a 34-year-old female who presents to the ER for a headache. The patient is a very poor historian as she has changed the way she describes her discomfort to 2 different nurses as well as myself. She specifically told me that her initial complaint was that she was having tingling and numbness on the left posterior neck and scalp that then radiated upward and then she felt numbness and tingling on the fourth and fifth digits of her hand without any weakness. No trauma, no headache, but light does bother her eye on the left. She denies any weakness or difficulty walking but she describes a general feeling overall of weakness. She also feels like something is "leaking" in her head. She is very anxious about this. She told nursing staff that she does have a headache on the left side but then she said it is not that bad. She denies that any type of "bomb" went off in her head but then she states she has never had anything like this before and it hurts a lot. No fevers or any other acute complaints. L sided headache Pain Score (Numeric/FACES): 7 - Related Data Allergies Allergy/AdvReac Type Severity Reaction Status Date / Time aspirin Allergy Airway Verified 10/29/19 22:57 Tightness gentamicin Allergy Rash Verified 10/29/19 22:57 Penicillins Allergy Rash Verified 10/29/19 22:57 tramadol Allergy Nausea and Verified 10/29/19 22:57 Vomiting Home Meds: Home Meds Esomeprazole Magnesium [Nexium 24Hr] 20 tab PO BID 06/22/18 [History] Cyclobenzaprine [Flexeril] 10 mg PO DAILY 01/08/20 [History] LORazepam [Lorazepam] 0.5 tab PO BID 01/08/20 [History] Past Medical History HEENT History: Reports: None Cardiovascular History: Reports: None Respiratory History: Reports: None Gastrointestinal History: Reports: GERD Genitourinary History: Reports: None SANITATION MANAGER History: Reports: 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 History: Reports: None Neurological History: Reports: None Psychiatric History: Reports: Anxiety, Depression, Panic Attack, PTSD Endocrine/Metabolic History: Reports: None Hematologic History: Reports: None Immunologic History: Reports: None Oncologic (Cancer) History: Reports: None Dermatologic History: Reports: None - Infectious Disease History Infectious Disease History: Reports: Chicken Pox - Past Surgical History Head Surgeries/Procedures: Reports: None HEENT Surgical History: Reports: Adenoidectomy, Oral Surgery, Tonsillectomy Cardiovascular Surgical History: Reports: None Respiratory Surgical History: Reports: None GI Surgical History: Reports: None Female Surgical History: Reports: Tubal Ligation Endocrine Surgical History: Reports: None Neurological Surgical History: Reports: None 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 Surgical History: Reports: None Oncologic Surgical History: Reports: None Dermatological Surgical History: Reports: None Social & Family History - Family History Family Medical History: Noncontributory - Caffeine Use Caffeine Use: Reports: Coffee, Soda - Recreational Drug Use Recreational Drug Use: No ED ROS GENERAL - Review of Systems Review Of Systems: See Below (Positive for headache, positive for facial and arm paresthesias, negative for weakness, negative for difficulty walking, negative for fevers, all other Positives and pertinent negatives as per HPI. All other pertinent systems were reviewed and are negative) - Physical Exam Exam: See Below Text/Narrative:: Constitutional: Non-toxic appearance, no acute distress but is slightly tearful and looks anxious HEENT: Normocephalic, Atraumatic, pupils are equal round reactive to light, EOMI , left eye is photophobic Neck: Normal range of motion, No stridor, trachea midline, no meningismus Respiratory: No respiratory distress, No tachypnea Cardiovascular: Deferred Gastrointestinal: Deferred Genital / Urinary: Deferred 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: All four extremities present and atraumatic Back: FROM Integument: Warm, Dry, Color is ethnicity appropriate, No rash. Neuro: Alert, Awake, oriented x3, cranial nerves grossly intact, normal gait, cerebellar function tests intact, no focal deficits noted Psych: Not psychotic, cooperative, anxious Course - Vital Signs Text/Narrative:: My initial clinical impression is the patient is having a migraine and not any malignant pathology such as a subarachnoid hemorrhage. However, not because she is confused, but because she is a very poor historian and she is having a hard time trying to describe her symptoms, I will perform a CT scan of the head to make sure there are no signs of any type of spontaneous subarachnoid hemorrhage, intracranial hemorrhage, hydrocephalus, etc. This will initially be treated with a migraine cocktail of Reglan 10 mg IV and Benadryl [address] scan is negative for any acute pathology and given the vagueness of the patient's headache,/onset without any explosion in her head, etc. I do not feel the patient warrants a lumbar puncture or any other type of medical work-up. Everything was explained to the patient in detail and she is feeling better with the medications provided so she is stable for discharge and she will get a work note as she is supposed to be there in the next few hours. Last Recorded V/S: Last Vital Signs Temp 36.8 C 01/08/20 22:37 Pulse 80 01/08/20 23:14 Resp 16 01/08/20 23:14 BP 131/76 01/08/20 23:14 Pulse Ox 98 01/08/20 23:14 - Orders/Labs/Meds Meds: Medications Discontinued Medications Generic Name Dose Route Start Last Admin Trade Name Lilliam PRN Reason Stop Dose Admin Diphenhydramine HCl 50 mg 01/08/20 22:49 01/08/20 23:08 Benadryl IVPUSH 01/08/20 22:50 50 mg ONETIME ONE Administration Metoclopramide HCl 10 mg 01/08/20 22:50 01/08/20 23:08 Reglan IVPUSH 01/08/20 22:51 10 mg ONETIME ONE Administration Departure - Departure Time of Disposition: 23:50 Disposition: Home, Self-Care 01 Condition: Good Clinical Impression: Migraine - Discharge Information Instructions: Migraine Headache, [id number] Referrals: Vickey Christianson MD [Primary Care Provider] - Forms: ED Department Discharge Additional Instructions: Migraine Headache Go home and rest If your headache starts to return, take ibuprofen 800 mg and Tylenol 1000 mg together every 6 hours as needed for pain Ask your doctor about your headaches, and about the migraine specific medications that you can be prescribed. Return to the ER if you develop uncontrolled headaches, fevers and headaches, headaches and passing out, headaches with weakness on part of your body or any other concerns Sepsis Event Note - Evaluation Sepsis Screening Result: No Definite Risk - Focused Exam Vital Signs: Vital Signs Temp Pulse Resp BP Pulse Ox 01/08/20 23:14 80 16 131/76 98 01/08/20 22:49 133/82 01/08/20 22:37 36.8 C 74 18 185/74 H 98 Date Exam was Performed: 01/08/20 Time Exam was Performed: 23:49
--- NOTE | 2020-01-08 23:09 | CT ---
Indication: Headache Technique: Nonenhanced axial CT imaging through the head. Sagittal and coronal reconstructions are provided. Comparison: None Findings: There is no intracranial hemorrhage, edema, or mass effect. There is normal attenuation of the brain parenchyma. The ventricles are normal in size. The basal cisterns are patent. The calvarium is intact. The visualized paranasal sinuses and mastoid air cells are aerated. Impression: No acute intracranial process. Please note that all CT scans at this facility use dose modulation, iterative reconstruction, and/or weight-based dosing when appropriate to reduce radiation dose to as low as reasonably achievable. Dictated by Ata Maki MD @ Jan 08 2020 11:08PM Signed by Dr. Ata Maki @ Jan 08 2020 11:08PM
== END 2020-01-09 00:05 | disposition home or self-care (01) ==
LOC: MW.ED 22:20
DX: G43.909 Migraine, unspecified, not intractable, without status migrainosus (principal); Z88.5 Allergy status to narcotic agent; Z88.0 Allergy status to penicillin; Z79.899 Other long term (current) drug therapy
CPT/HCPCS: 70450; 96374; 96375; 99284; J1200; J2765; 99283

== ENCOUNTER 2020-01-27 10:05 | Emergency (ER) | payer SELFPAY ==
[2020-01-27] MEDS ORDERED: Sodium Chloride 0.9% 1,000 ML IV ONE (10:30)
[2020-01-27] MEDS ORDERED: Ketorolac 30 MG/ML SDV IVPUSH ONE (10:30)
--- NOTE | 2020-01-27 11:32 | CR ---
Chest: 2 views of the chest were obtained. Comparison: Prior chest x-ray of 10/29/19. Heart size and mediastinum are normal. Lungs are clear with no acute parenchymal change. Bony structures are within normal limits. Impression: 1. Nothing acute is identified on 2 view chest x-ray. Diagnostic code #1 This report was dictated in [place] Standard Time
[2020-01-27 11:37] LABS: BLOOD UREA NITROGEN,BUN 10 mg/dL (7.0-18.0); CARBON DIOXIDE,CO2 25.7 mmol/L (21.0-32.0); CHLORIDE,CL 105 mmol/L (98-107); GLUCOSE RANDOM 91 mg/dL (74-106); POTASSIUM,K 3.9 mmol/L (3.5-5.1); SODIUM,NA 142 mmol/L (136-145)
--- NOTE | 2020-01-27 11:57 | EDM.PDOC ---
ED [facility] GENERAL MEDICAL PROBLEM - General Chief Complaint: Chest Pain Stated Complaint: CHEST PAIN, COUGH, FEVER Time Seen by Provider: 01/27/20 10:17 - History of Present Illness INITIAL COMMENTS - FREE TEXT/NARRATIVE: HPI 34-year-old obese female recently former smoker presents for evaluation of approximately 3 days of cough, myalgias, fevers, chills, and now approximately one day of poorly characterized substernal chest discomfort/pressure. Denies history of DVT or PE. Notes that her cough and symptomatology get worse with activity. Endorses fatigue. It is concerned she has influenza. M/S/F/SocHx notable for: please see HPI; remainder reviewed with patient and in chart. ROS: Negative constitutional, eye, cardiovascular, pulmonary, GI, , MSK, skin , neurologic, psychiatric, endocrine unless noted in the HPI. Exam HR 85, RR 22, BP 141/76, T 36.0C, SaO2 90% on room air. Gen: Pleasant, non-toxic appearing, resting comfortably. HEENT: NC, AT, PEERL, EOMI. Resp: Clear to auscultation bilaterally, normal work of breathing, no accessory muscle usage. Card: Regular rate and rhythm with no murmurs, rubs, or gallops, extremities warm and well perfused. GI: Non-tender to palpation throughout all quadrants, no focal tenderness at McBurney's point, negative Shaw's sign, non-distended, no rebound or guarding. : No suprapubic tenderness to palpation. MSK: No visible deformities, strength and tone without visually appreciable deficit. Skin: Normal color with no visible lesions. Neuro: alert and oriented 3, no facial asymmetry, vision and hearing WNL. Psych: mildly anxious mood and affect. Labs / Imaging: WBC 6.3, Hb 14.4, sodium 142, potassium 3.9, troponin <0.050. Influenza A positive, B negative. D-dimer 0.41 EKG: SR 80 bpm, no [place] segment depressions, QRS 80 ms, no ST segment elevations or depressions, no discordant T wave inversions, QTc 460 ms. CXR: nothing acute is identified on 2 view chest x-ray. MDM Previous chart, nursing note, labs, imaging, and vitals reviewed. A: 34-year-old obese female recently former smoker presents for evaluation of approximately 3 days of cough, myalgias, fevers, chills, and now approximately one day of poorly characterized substernal chest discomfort/pressure. DDx: influenza, viral syndrome (NOS), pneumonia, bacteremia, septicemia, pericarditis, myocarditis, ACS, PE. Evaluation: patient is uncomfortable appearing however remains well compensated , influenza is positive, given duration of symptoms Tamiflu treatment is not indicated. ECG without evidence of ischemia, conduction abnormalities, no features suggestive of pericarditis/myocarditis, in the setting of a negative troponin this effectively excludes ACS, myocarditis, and pericarditis. History without features suggestive of unstable angina, given overall symptoms and alternate diagnosis, no further investigation is presently warranted. Given the absence of hypotension, tachycardia, leukocytosis, and the patients overall clinical impression consider bacteremia/septicemia to be effectively excluded. With respect to PE, the patients low pretest probability (Wells, see below), and a negative d-dimer effectively wrist ratify/rule out this entity. ED Course: 1 L NS, 30 mg Toradol given for symptomatic treatment. Disposition: discharge with PCP follow-up as needed. Impression: influenza. (please reference below for remainder of encounter information) Junior' (Signs & Sx of DVT - 0, PE is #1 or equally likelihood - 0, HR > 100 - 0 , immobilization of >=3 days or surgery in last 28 days - 0, prior DVT or PE - 0 , hemoptysis - 0, malignancy w/ tx in last 6 mo or palliative - 0). Mid-Sternal Chest Pain Score (Numeric/FACES): 8 - Related Data Allergies Allergy/AdvReac Type Severity Reaction Status Date / Time aspirin Allergy Airway Verified 01/27/20 10:14 Tightness gentamicin Allergy Rash Verified 01/27/20 10:14 Penicillins Allergy Rash Verified 01/27/20 10:14 tramadol Allergy Nausea and Verified 01/27/20 10:14 Vomiting Home Meds: Home Meds Esomeprazole Magnesium [Nexium 24Hr] 20 tab PO BID 06/22/18 [History] Cyclobenzaprine [Flexeril] 10 mg PO DAILY 01/08/20 [History] LORazepam [Lorazepam] 0.5 tab PO BID 01/08/20 [History] Past Medical History HEENT History: Reports: None Cardiovascular History: Reports: None Respiratory History: Reports: None Gastrointestinal History: Reports: GERD Genitourinary History: Reports: None EDITORIAL MANAGER History: Reports: None 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 History: Reports: None Neurological History: Reports: None Psychiatric History: Reports: Anxiety, Depression, Panic Attack, PTSD Endocrine/Metabolic History: Reports: None Hematologic History: Reports: None Immunologic History: Reports: None Oncologic (Cancer) History: Reports: None Dermatologic History: Reports: None - Infectious Disease History Infectious Disease History: Reports: Chicken Pox - Past Surgical History Head Surgeries/Procedures: Reports: None HEENT Surgical History: Reports: Adenoidectomy, Oral Surgery, Tonsillectomy Cardiovascular Surgical History: Reports: None Respiratory Surgical History: Reports: None GI Surgical History: Reports: None Female Surgical History: Reports: Section, Tubal Ligation Endocrine Surgical History: Reports: None Neurological Surgical History: Reports: None 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 Surgical History: Reports: None Oncologic Surgical History: Reports: None Dermatological Surgical History: Reports: None Social & Family History - Family History Family Medical History: Noncontributory - Tobacco Use Smoking Status *Q: Never Smoker - Caffeine Use Caffeine Use: Reports: Coffee, Soda - Recreational Drug Use Recreational Drug Use: No ED ROS PEDIATRIC - Review of Systems Review Of Systems: See Below ED EXAM, GENERAL (PEDS) - Physical Exam Exam: See Below Course - Vital Signs Last Recorded V/S: Last Vital Signs Temp 36.0 C L 01/27/20 10:11 Pulse 85 01/27/20 10:11 Resp 22 H 01/27/20 10:11 BP 141/76 H 01/27/20 10:11 Pulse Ox 98 01/27/20 10:11 - Orders/Labs/Meds Orders: Active Orders 24 hr Category Date Time Status EKG 12 Lead [EKG Documentation Completion] [RC] STAT Care 01/27/20 10:27 Active Isolation [COMM] Routine Oth 01/27/20 10:30 Active Labs: Laboratory Tests 01/27/20 01/27/20 01/27/20 Range/Units 10:15 10:15 10:52 WBC 6.31 (4.0-11.0) K/uL RBC 5.19 (4.30-5.90) M/uL Hgb 14.4 (12.0-16.0) g/dL Hct 44.7 (36.0-46.0) % MCV 86.1 (80.0-98.0) fL MCH 27.7 (27.0-32.0) pg MCHC 32.2 (31.0-37.0) g/dL RDW Std Deviation 43.7 (28.0-62.0) fl RDW Coeff of Ashutosh 14 (11.0-15.0) % Plt Count 227 (150-400) K/uL MPV 11.20 (7.40-12.00) fL Neut % (Auto) 43.3 L (48.0-80.0) % Lymph % (Auto) 48.0 H (16.0-40.0) % Bryan % (Auto) 7.3 (0.0-15.0) % Eos % (Auto) 1.1 (0.0-7.0) % Baso % (Auto) 0.3 (0.0-1.5) % Neut # (Auto) 2.7 (1.4-5.7) K/uL Lymph # (Auto) 3.0 H (0.6-2.4) K/uL Bryan # (Auto) 0.5 (0.0-0.8) K/uL Eos # (Auto) 0.1 (0.0-0.7) K/uL Baso # (Auto) 0.0 (0.0-0.1) K/uL Nucleated RBC % 0.0 /100WBC Nucleated RBCs # 0 K/uL D-Dimer, Quantitative 0.41 (0.0-0.50) mg/L FEU Sodium 142 (136-145) mmol/L Potassium 3.9 (3.5-5.1) mmol/L Chloride 105 (98-107) mmol/L Carbon Dioxide 25.7 (21.0-32.0) mmol/L BUN 10 (7.0-18.0) mg/dL Creatinine 1.3 H (0.6-1.0) mg/dL Est Cr Clr Drug Dosing 48.23 mL/min Estimated GFR (MDRD) 46.9 ml/min Glucose 91 (74-106) mg/dL Calcium 8.8 (8.5-10.1) mg/dL Troponin I < 0.050 (0.000-0.056) ng/mL Meds: Medications Discontinued Medications Generic Name Dose Route Start Last Admin Trade Name Freq PRN Reason Stop Dose Admin Sodium Chloride 1,000 mls @ 1,000 mls/hr 01/27/20 10:30 01/27/20 10:39 Normal Saline IV 01/27/20 11:29 1,000 mls/hr .Bolus ONE Administration Ketorolac Tromethamine 30 mg 01/27/20 10:30 01/27/20 10:39 Toradol IVPUSH 01/27/20 10:31 30 mg ONETIME ONE Administration Departure - Departure Time of Disposition: 11:57 Disposition: Home, Self-Care 01 Clinical Impression: Influenza A - Discharge Information Referrals: PCP,None [Primary Care Provider] - Additional Instructions: You were in seen in the [facility] Emergency Department for evaluation of fevers, cough, malaise, and chest discomfort. At the time of your evaluation your found have influenza. Please read and follow all of the instructions below. Please follow up with your primary care physician as needed. When calling for follow-up care, please make the office aware that this follow-up is from your recent emergency room visit. If for any reason you are refused follow-up, please contact the [facility] Emergency Department at and asked to speak to the emergency department charge nurse. Your care today was limited to identifying and treating emergent medical problems only. Many people have subtle differences in their test results that require follow up with their outpatient physician(s) to correctly determine if this represents a normal variation or concerning abnormality with respect to your specific health. The care given to you today was limited to identifying and treating emergent medical problems - you need to request a copy of all of your medical records from today's visit and follow up with your outpatient physician(s) to review both today's visit and your overall health. If you have any new symptoms or if you are at all concerned about your health please return immediately to the emergency department. What is the flu? The flu is a viral infection that can cause fever, cough, body aches, and other symptoms. There are different forms of the flu, including the "seasonal" flu, the 3448-8900 pandemic H1N1 flu (also called the "swine" flu), and the bird flu. All forms of the flu are caused by viruses. The medical term for the flu is "influenza." All forms of the flu can cause fevers, cough, headaches or body aches, and a sore throat or runny nose. Return to the emergency department if you have any of the following: * Have trouble breathing or are short of breath * Feel pain or pressure in your chest or belly * Get suddenly dizzy * Feel confused * Have severe vomiting * If you are breathing fast, have trouble breathing, are if you turn blue or purple * If you are excessively fatigued you have difficulty waking up * If you start getting better from the flu but then have worsening sickness, this could represent a secondary bacterial infection. * If you develop a fever, rash, neck stiffness, headaches, or bright lights bother you. * If you are otherwise concerned about your health * If you decide to go to a walk-in clinic or a hospital because of the flu, tell someone right away why you are there. The staff might ask you to wear a mask or to wait someplace where you are less likely to spread your infection. Home Care The primary treatment for influenza is supportive care. Please stay well- hydrated, rest, consume a light diet, and - if you do not have any allergies or other reasons not to - you may take ibuprofen and acetaminophen as directed on the bottle for symptomatic relief from your fevers and aches. Do not go to work or school until your fever has been gone for at least 24 hours, without a taking fever-reducing medicine, such as acetaminophen or ibuprofen. If you work in a healthcare setting taking care of patients, you might need to stay home longer if you are still coughing. Also, always cover your mouth and nose with the inside of your elbow when you cough or sneeze. Prescriptions: If you are uninsured or have financial difficulties with filling your prescription(s), you may consider using a free pharmacy discount service such as [employer] ([employer]) or [employer] ([facility]). These services allow you to search for a medication on your phone (or computer) and obtain a coupon that usually has a significant discount from the list zuniga at a pharmacy. Your physician as well as [facility] does not have a financial relationship with either of these services. You may also wish to speak with your physician to determine if lower cost prescriptions are possible. Obtaining primary care: 1. [facility] provides pediatrics (children), family medicine (children, adults, and some obstetrical care), and internal medicine (adults). Further specialty care is also available. Same day appointments are available. They may be contacted at [phone] and are open Sunday through Sunday 8 AM to 5 PM. The [facility] are located at [facility], [address] [place] [address]. 2. [facility] offers family medicine, internal medicine, [facility], and further specialty care. [facility] may be contacted at [phone]. [facility] is located at [address] [facility] [address]. 3. If you have health insurance, please also contact your insurer for a list of accepting providers under your policy, you may contact these providers for further health care. Occupational health: Work related injuries may consider following up with [facility], . Occupational health services are located at [address] [place] [address] and are open Sunday through Sunday from 7: 30 am to 5:00 pm. Obstetrical and Gynecological Care: [facility], , Sunday through Sunday 8 AM to 5 PM. [address], [place] [address]. Eyecare: If you have an eye injury you should follow up with your picker/puller or with [facility], at [phone] or [phone] , they are located at [address] [place] [address]. Dental Care Ankur Gandara DDS. [address] [facility] [place], [place]. Ph. [phone] Shon Harry Gandara DDS MS. [address] [facility] [address], [place], [place]. Ph. Paco Naranjo DDS. 10 11/20 [facility] [address], [place], [place]. Ph. [phone] Khalif Candelario DDS. [address] [facility] 4 [place], [place]. Ph. [phone] Daniel Perez DDS PC. [address] [facility] [address] [place], [place]. Ph. Apryl Moreno DDS. [address] [facility]. Ph. [phone] [facility]. [address] [place], [place]. Ph. [phone] [facility]. [address] [place] [address], [place], [place]. Ph. [phone] [facility] [address] [place] [address]. Ph. [phone] [facility]. [address] [place] [address] [address]. [place]. Ph. [facility]. [address] [place], [place]. Ph. [phone] Sepsis Event Note - Evaluation Sepsis Screening Result: No Definite Risk - Focused Exam Vital Signs: Vital Signs Temp Pulse Resp BP Pulse Ox 01/27/20 10:11 36.0 C L 85 22 H 141/76 H 98 Date Exam was Performed: 01/27/20 Time Exam was Performed: 11:56 - My Orders Last 24 Hours: My Active Orders 01/27/20 10:27 EKG 12 Lead [EKG Documentation Completion] [RC] STAT 01/27/20 10:30 Isolation [COMM] Routine - Assessment/Plan Last 24 Hours: My Active Orders 01/27/20 10:27 EKG 12 Lead [EKG Documentation Completion] [RC] STAT 01/27/20 10:30 Isolation [COMM] Routine
== END 2020-01-27 12:10 | disposition home or self-care (01) ==
LOC: MW.ED 10:05
DX: J10.1 Influenza due to other identified influenza virus with other respiratory manifestations (principal); F41.0 Panic disorder [episodic paroxysmal anxiety]; K21.9 Gastro-esophageal reflux disease without esophagitis; Z88.8 Allergy status to other drugs, medicaments and biological substances; Z88.0 Allergy status to penicillin; Z79.899 Other long term (current) drug therapy
CPT/HCPCS: 36415; 71046; 80048; 84484; 85025; 85379; 87804; 93005; 96361; 96374; 99284; J1885; J7030; 99283

== ENCOUNTER 2020-11-19 22:27 | Emergency (ER) | payer SELFPAY ==
[2020-11-19] MEDS ORDERED: Sodium Chloride 0.9% 2.5 ML Syringe FLUSH PRN (22:46)
[2020-11-19] MEDS ORDERED: Sodium Chloride 0.9% 10 ML Syringe FLUSH PRN (22:46)
[2020-11-19] MEDS ORDERED: Sodium Chloride 0.9% 1,000 ML IV ONE (22:46)
[2020-11-19] MEDS ORDERED: LORazepam 2 MG/ML SDV IVPUSH ONE (22:48)
[2020-11-19] MEDS ORDERED: Alum Hydrox/Mag Hydrox/Simeth 15 ML, Lidocaine 2% 5 ML PO ONE ×2 (23:04)
--- NOTE | 2020-11-19 23:17 | CR ---
INDICATION: Chest pain TECHNIQUE: Chest radiograph 1 view COMPARISON: None FINDINGS: Moderate degradation of image quality noted due to body habitus. Mediastinum: The mediastinum is normal in appearance. The heart silhouette is normal in size and morphology. Lung: Both lungs are unremarkable in appearance with small lung volumes. No sign of pleural effusion seen. No pneumothorax is identified. Bone and Soft tissue: Unremarkable for age. IMPRESSION: 1. No acute cardiopulmonary disease is seen. Dictated by: Jean Claude Finn MD @ 11/19/2020 23:15:30 (Electronically Signed)
[2020-11-19 23:20] LABS: BLOOD UREA NITROGEN,BUN 10 mg/dL (7.0-18.0); CARBON DIOXIDE,CO2 20.4 mmol/L (21.0-32.0); CHLORIDE,CL 101 mmol/L (98-107); GLUCOSE RANDOM 172 mg/dL (74-106); LIPASE 107 U/L (73-393); POTASSIUM,K 3.4 mmol/L (3.5-5.1); SODIUM,NA 137 mmol/L (136-145)
[2020-11-19] MEDS ORDERED: Iopamidol 755 MG/ML 500 ML Multipack Bottle IVPUSH STA (23:59)
--- NOTE | 2020-11-20 00:31 | CT ---
INDICATION: Elevated D-dimer, shortness of breath, tachycardia TECHNIQUE: CT chest with i.v. contrast using pulmonary angiographic technique. Coronal and sagittal reformats were obtained. CONTRAST: 100 mL Isovue 370 COMPARISON: None FINDINGS: Cardiovascular: The pulmonary arteries are unremarkable in enhancement with no evidence of acute pulmonary embolism. The heart has an unremarkable appearance and size. No sign of aneurysm in the thoracic aorta. Mediastinum: No mass or adenopathy seen. Lung: Both lungs are unremarkable in appearance. Pleura and pericardium: No sign of pleural effusion seen. No significant pericardial effusion is present. Chest wall and axilla: No mass or adenopathy seen. Bone: Unremarkable for age. Upper abdomen: Unremarkable. IMPRESSION: 1. No CT evidence of acute pulmonary emboli seen. Dictated by Jean Claude Finn MD @ 11/20/2020 12:22:28 AM Please note that all CT scans at this facility use dose modulation, iterative reconstruction, and/or weight-based dosing when appropriate to reduce radiation dose to as low as reasonably achievable. Dictated by: Jean Claude Finn MD @ 11/20/2020 00:31:07 (Electronically Signed)
--- NOTE | 2020-11-20 00:42 | EDM.PDOC ---
ED HPI GENERAL MEDICAL PROBLEM - General Chief Complaint: Chest Pain Stated Complaint: CHEST PAIN, BACK PAIN Time Seen by Provider: 11/19/20 22:38 - History of Present Illness INITIAL COMMENTS - FREE TEXT/NARRATIVE: HISTORY AND PHYSICAL: History of present illness: This a 35-year-old female with no significant past medical history presents ER today secondary to palpitations and shortness of breath and feeling anxious. Patient denies any recent fevers, shakes, chills, dysuria, frequency, urgency. Patient reports that she feels like her chest is popping out of her body. Patient reports that she been having symptoms for 2 days now and is to be taking extra doses of her Ativan at home without any significant relief. Patient has any calf tenderness. Patient has no history of hypertension, diabetes, liver, lung, kidney problems. Patient denies any alcohol or drugs. Patient reports that over the last 2 to 3 days she been having increasing nausea, vomiting and diarrhea. Patient reports that she has been able to tolerate some p.o. solids and liquids but has been having 2-3 loose bowel movements per day. Review of systems: As per history of present illness and below otherwise all systems reviewed and negative. Past medical history: As per history of present illness and as reviewed below otherwise noncontributory. Surgical history: As per history of present illness and as reviewed below otherwise noncon tributory. Social history: No reported history of drug or alcohol abuse. Family history: As per history of present illness and as reviewed below otherwise noncontributory. Physical exam: Constitutional: Patient is oriented to person, place, and time. Appears well- developed and well-nourished. No distress. HEENT: Moist mucous membranes Head: Normocephalic and atraumatic Eyes: Right eye exhibits no discharge. Left eye exhibits no discharge. No scleral icterus Neck: Normal range of motion. No tracheal deviation present. Cardiovascular: Normal rate and regular rhythm. Pulmonary: Effort normal, no respiratory distress. Abdominal: No distention 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: Normal range of motion Neurologic: Alert and oriented to person, place and time. Skin: [place], warm and dry. Psychiatric: Normal mood and affect. Behavior is normal. Judgment and thought content normal. Nursing note and vital signs have been reviewed This patient was seen and evaluated during the 2019 SARS-CoV-2 novel coronavirus pandemic period. Community viral transmission is ongoing at time of this encounter and the emergency department is operating under pandemic response procedures. Diagnostics: CBC, CMP within normal limits. EKG: As interpreted by ER physician: Raul: Nonspecific ST-T wave abnormalities Normal axis No evidence of ST elevation [place] Sinus tachycardia heart rate 144 Chest Xray: Normal cardiac silhouette No infiltrates or effusions identified. No PTX No evidence of acute bony fracture. As interpreted by ER MD: Raul CTA thorax shows no PE D-dimer elevated TSH within normal limits Therapeutics: NSS x1 L Ativan 2 mg IV Assessment and plan: 35-year-old female who presents ER today secondary to palpitations, nausea, vomiting, diarrhea, feeling dehydrated and feeling her heart is pounding out of her chest. Patient appears clinically dehydrated. Patient given IV fluids as well as Ativan in the ED and her heart rate currently is 75. Patient's CTA is negative for PE or other acute pulmonary pathology. Patient's EKG reveals sinus tachycardia with nonspecific ST-T wave abnormalities. Patient feels much improved after treatment in the ED is requesting to be discharged home at this time. Reassessment at the time of disposition demonstrates that the patient is in no acute distress. The patient has remained stable throughout the entire ED visit and is without objective evidence for acute process requiring urgent intervention or hospitalization. The patient is stable for discharge, counseling is provided as documented above, discussed symptomatic treatment and specific conditions for return. I have spoken with the patient/caregiver and discussed todays findings, in addition to providing specific details for the plan of care. Questions are answered and there is agreement with the plan. Definitive disposition and diagnosis as appropriate pending reevaluation and review of above. 7:38 PM Esvin spaulding 2020: Phone call follow-up attempted. Fast busy signal with phone number that was given. center chest Pain Score (Numeric/FACES): 9 - Related Data Allergies Allergy/AdvReac Type Severity Reaction Status Date / Time aspirin Allergy Airway Verified 11/19/20 22:51 Tightness gentamicin Allergy Rash Verified 11/19/20 22:51 Penicillins Allergy Rash Verified 11/19/20 22:51 tramadol Allergy Nausea and Verified 11/19/20 22:51 Vomiting Home Meds: Home Meds Esomeprazole Magnesium [Nexium 24Hr] 20 tab PO BID 06/22/18 [History] Cyclobenzaprine [Flexeril] 10 mg PO DAILY 01/08/20 [History] LORazepam [Lorazepam] 0.5 tab PO BID 01/08/20 [History] Ondansetron [Zofran ODT] 4 mg PO Q6H PRN #12 tab.dis 11/20/20 [Rx] Past Medical History HEENT History: Reports: None Cardiovascular History: Reports: None Respiratory History: Reports: None Gastrointestinal History: Reports: GERD Genitourinary History: Reports: None [employer] [place] History: Reports: 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 History: Reports: None Neurological History: Reports: None Psychiatric History: Reports: Anxiety, Depression, Panic Attack, PTSD Endocrine/Metabolic History: Reports: None Hematologic History: Reports: None Immunologic History: Reports: None Oncologic (Cancer) History: Reports: None Dermatologic History: Reports: None - Infectious Disease History Infectious Disease History: Reports: Chicken Pox - Past Surgical History Head Surgeries/Procedures: Reports: None HEENT Surgical History: Reports: Adenoidectomy, Oral Surgery, Tonsillectomy Other HEENT Surgeries/Procedures: wisdom teeth Cardiovascular Surgical History: Reports: None Respiratory Surgical History: Reports: None GI Surgical History: Reports: None Female Surgical History: Reports: Section, Tubal Ligation Endocrine Surgical History: Reports: None Neurological Surgical History: Reports: None 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 Surgical History: Reports: None Oncologic Surgical History: Reports: None Dermatological Surgical History: Reports: None Social & Family History - Family History Family Medical History: No Pertinent Family History - Caffeine Use Caffeine Use: Reports: Coffee, Energy Drinks, Soda, Tea - Recreational Drug Use Recreational Drug Use: No ED ROS GENERAL - Review of Systems Review Of Systems: See Below ED EXAM, GENERAL - Physical Exam Exam: See Below #1 Interpretation EKG Interpretation Comments: EKG: As interpreted by ER physician: Raul: Nonspecific ST-T wave abnormalities Normal axis No evidence of ST elevation [place] Sinus tachycardia rate of 144 Course - Vital Signs Last Recorded V/S: Last Vital Signs Temp 96.5 F L 11/19/20 22:39 Pulse 141 H 11/19/20 22:39 Resp 22 H 11/19/20 22:39 BP 142/88 H 11/19/20 22:39 Pulse Ox 100 11/19/20 22:39 - Orders/Labs/Meds Orders: Active Orders 24 hr Category Date Time Status Saline Lock Insert [OM.PC] Stat Oth 11/19/20 22:46 Ordered Labs: Laboratory Tests 11/19/20 11/19/20 11/19/20 Range/Units 22:45 22:45 22:45 WBC 12.30 H (4.0-11.0) K/uL RBC 4.97 (4.30-5.90) M/uL Hgb 13.8 (12.0-16.0) g/dL Hct 42.3 (36.0-46.0) % MCV 85.1 (80.0-98.0) fL MCH 27.8 (27.0-32.0) pg MCHC 32.6 (31.0-37.0) g/dL RDW Std Deviation 43.1 (28.0-62.0) fl RDW Coeff of Ashutosh 14 (11.0-15.0) % Plt Count 339 (150-400) K/uL MPV 11.10 (7.40-12.00) fL Neut % (Auto) 41.3 L (48.0-80.0) % Lymph % (Auto) 49.7 H (16.0-40.0) % [place] % (Auto) 7.4 (0.0-15.0) % Eos % (Auto) 1.4 (0.0-7.0) % Baso % (Auto) 0.2 (0.0-1.5) % Neut # (Auto) 5.1 (1.4-5.7) K/uL Lymph # (Auto) 6.1 H (0.6-2.4) K/uL [place] # (Auto) 0.9 H (0.0-0.8) K/uL Eos # (Auto) 0.2 (0.0-0.7) K/uL Baso # (Auto) 0.0 (0.0-0.1) K/uL Nucleated RBC % 0.0 /100WBC Nucleated RBCs # 0 K/uL D-Dimer, Quantitative 0.90 H (0.0-0.50) mg/L FEU Sodium 137 (136-145) mmol/L Potassium 3.4 L (3.5-5.1) mmol/L Chloride 101 (98-107) mmol/L Carbon Dioxide 20.4 L (21.0-32.0) mmol/L BUN 10 (7.0-18.0) mg/dL Creatinine 1.0 (0.6-1.0) mg/dL Est Cr Clr Drug Dosing TNP Estimated GFR (MDRD) > 60.0 ml/min Glucose 172 H (74-106) mg/dL Calcium 9.3 (8.5-10.1) mg/dL Total Bilirubin 0.4 (0.2-1.0) mg/dL AST 22 (15-37) IU/L ALT 36 (14-63) IU/L Alkaline Phosphatase 78 (46-116) U/L Troponin I < 0.050 (0.000-0.056) ng/mL Total Protein 7.6 (6.4-8.2) g/dL Albumin 3.8 (3.4-5.0) g/dL Globulin 3.8 (2.6-4.0) g/dL Albumin/Globulin Ratio 1.0 (0.9-1.6) Lipase 107 (73-393) U/L TSH 3rd Generation 1.99 (0.36-3.74) uIU/mL Urine Color Urine Appearance Urine pH (5.0-8.0) Ur Specific [place] (1.001-1.035) Urine Protein (NEGATIVE) mg/dL Urine Glucose (UA) (NEGATIVE) mg/dL Urine Ketones (NEGATIVE) mg/dL Urine Occult Blood (NEGATIVE) Urine Nitrite (NEGATIVE) Urine Bilirubin (NEGATIVE) Urine Urobilinogen (<2.0) EU/dL Ur Leukocyte Esterase (NEGATIVE) Urine RBC (0-2/HPF) Urine WBC (0-5/HPF) Ur Epithelial Cells (NONE-FEW) Urine Bacteria (NEGATIVE) 11/19/20 Range/Units 23:11 WBC (4.0-11.0) K/uL RBC (4.30-5.90) M/uL Hgb (12.0-16.0) g/dL Hct (36.0-46.0) % MCV (80.0-98.0) fL MCH (27.0-32.0) pg MCHC (31.0-37.0) g/dL RDW Std Deviation (28.0-62.0) fl RDW Coeff of Ashutosh (11.0-15.0) % Plt Count (150-400) K/uL MPV (7.40-12.00) fL Neut % (Auto) (48.0-80.0) % Lymph % (Auto) (16.0-40.0) % [place] % (Auto) (0.0-15.0) % Eos % (Auto) (0.0-7.0) % Baso % (Auto) (0.0-1.5) % Neut # (Auto) (1.4-5.7) K/uL Lymph # (Auto) (0.6-2.4) K/uL [place] # (Auto) (0.0-0.8) K/uL Eos # (Auto) (0.0-0.7) K/uL Baso # (Auto) (0.0-0.1) K/uL Nucleated RBC % /100WBC Nucleated RBCs # K/uL D-Dimer, Quantitative (0.0-0.50) mg/L FEU Sodium (136-145) mmol/L Potassium (3.5-5.1) mmol/L Chloride (98-107) mmol/L Carbon Dioxide (21.0-32.0) mmol/L BUN (7.0-18.0) mg/dL Creatinine (0.6-1.0) mg/dL Est Cr Clr Drug Dosing Estimated GFR (MDRD) ml/min Glucose (74-106) mg/dL Calcium (8.5-10.1) mg/dL Total Bilirubin (0.2-1.0) mg/dL AST (15-37) IU/L ALT (14-63) IU/L Alkaline Phosphatase (46-116) U/L Troponin I (0.000-0.056) ng/mL Total Protein (6.4-8.2) g/dL Albumin (3.4-5.0) g/dL Globulin (2.6-4.0) g/dL Albumin/Globulin Ratio (0.9-1.6) Lipase (73-393) U/L TSH 3rd Generation (0.36-3.74) uIU/mL Urine Color YELLOW Urine Appearance SLT CLOUDY Urine pH 6.0 (5.0-8.0) Ur Specific [place] 1.010 (1.001-1.035) Urine Protein NEGATIVE (NEGATIVE) mg/dL Urine Glucose (UA) NEGATIVE (NEGATIVE) mg/dL Urine Ketones TRACE H (NEGATIVE) mg/dL Urine Occult Blood NEGATIVE (NEGATIVE) Urine Nitrite NEGATIVE (NEGATIVE) Urine Bilirubin NEGATIVE (NEGATIVE) Urine Urobilinogen 0.2 (<2.0) EU/dL Ur Leukocyte Esterase TRACE H (NEGATIVE) Urine RBC 0-1 (0-2/HPF) Urine WBC 0-1 (0-5/HPF) Ur Epithelial Cells FEW (NONE-FEW) Urine Bacteria RARE (NEGATIVE) Meds: Medications Discontinued Medications Generic Name Dose Route Start Last Admin Trade Name Rafaelq PRN Reason Stop Dose Admin Al Hydroxide/Mg Hydroxide 15 0 ml 11/19/20 23:04 11/19/20 23:08 ml/ Lidocaine HCl 5 ml PO 11/19/20 23:05 1 each ONETIME ONE Administration Sodium Chloride 1,000 mls @ 999 mls/hr 11/19/20 22:46 11/19/20 22:56 Normal Saline IV 11/19/20 23:46 999 mls/hr .Bolus ONE Administration Iopamidol 100 ml 11/19/20 23:59 11/19/20 23:59 Isovue Multipack-370 (76%) IVPUSH 11/20/20 00:00 100 ml ONETIME STA Administration Lorazepam 2 mg 11/19/20 22:48 11/19/20 22:56 Ativan IVPUSH 11/19/20 22:49 2 mg ONETIME ONE Administration Sodium Chloride 10 ml 11/19/20 22:46 01/01/21 22:57 Saline Flush FLUSH 10 ml ASDIRECTED PRN Administration Keep Vein Open Sodium Chloride 2.5 ml 11/19/20 22:46 11/19/20 22:57 Saline Flush FLUSH 2.5 ml ASDIRECTED PRN Administration Keep Vein Open Departure - Departure Time of Disposition: 00:40 Disposition: Home, Self-Care 01 Condition: Good Clinical Impression: Dehydration, Vomiting and diarrhea, Anxiety, Palpitations, Elevated d-dimer - Discharge Information Prescriptions: Ondansetron [Zofran ODT] 4 mg PO Q6H PRN #12 tab.dis PRN Reason: Nausea Instructions: Diarrhea, Adult, Nausea and Vomiting, Adult, [id number], Dehydration, Adult, [id number], Palpitations, [id number] Referrals: Vickey Christianson MD [Primary Care Provider] - Forms: ED Department Discharge Additional Instructions: You were seen and evaluated in ER today secondary to palpitations and dehydration. Your symptoms appear to have significantly improved after IV fluids and Ativan. Your CTA does not reveal any evidence of any abnormality in your chest. Your labs are otherwise within normal limits. Please go home and get some rest, drink plenty of fluids, you will be given a prescription for Zofran to take to assist you with your nausea so that he can maintain hydration. Please see your family doctor in 1 to 2 days for reevaluation. The following information is given to patients seen in the emergency department who are being discharged to home. This information is to outline your options for follow-up care. We provide all patients seen in our emergency department with a follow-up referral. The need for follow-up, as well as the timing and circumstances, are variable depending upon the specifics of your emergency department visit. If you don't have a primary care physician on staff, we will provide you with a referral. We always advise you to contact your personal physician following an emergency department visit to inform them of the circumstance of the visit and for follow-up with them and/or the need for any referrals to a consulting specialist. The emergency department will also refer you to a specialist when appropriate. This referral assures that you have the opportunity for follow-up care with a specialist. All of these measure are taken in an effort to provide you with optimal care, which includes your follow-up. Under all circumstances we always encourage you to contact your private physician who remains a resource for coordinating your care. When calling for follow-up care, please make the office aware that this follow-up is from your recent emergency room visit. If for any reason you are refused follow-up, please contact the [facility] Emergency Department at and asked to speak to the emergency department charge nurse. [facility] - Primary Care [address] [place] [id number] [facility] [address] [place] [id number] Sepsis Event Note (ED) - Evaluation Sepsis Screening Result: No Definite Risk - My Orders Last 24 Hours: My Active Orders 11/19/20 22:46 Saline Lock Insert [OM.PC] Stat - Assessment/Plan Last 24 Hours: My Active Orders 11/19/20 22:46 Saline Lock Insert [OM.PC] Stat
== END 2020-11-20 01:01 | disposition home or self-care (01) ==
LOC: MW.ED 22:27
DX: F41.9 Anxiety disorder, unspecified (principal); E86.0 Dehydration; R79.1 Abnormal coagulation profile; R19.7 Diarrhea, unspecified; K21.9 Gastro-esophageal reflux disease without esophagitis; F32.9 Major depressive disorder, single episode, unspecified; Z88.8 Allergy status to other drugs, medicaments and biological substances; Z88.0 Allergy status to penicillin; Z88.5 Allergy status to narcotic agent; Z88.1 Allergy status to other antibiotic agents; Z98.51 Tubal ligation status; Z90.49 Acquired absence of other specified parts of digestive tract; Z79.899 Other long term (current) drug therapy
CPT/HCPCS: 36415; 71045; 71275; 80053; 81001; 83690; 84443; 84484; 85025; 85379; 96374; 99285; A9270; J2060; J7030; Q9967; 93010; 99283

== ENCOUNTER 2021-06-25 03:56 | Emergency (ER) | payer SELFPAY ==
--- NOTE | 2021-06-25 04:36 | EDM.PDOC ---
ED HPI GENERAL MEDICAL PROBLEM - General Chief Complaint: General Stated Complaint: NECK PAIN RADIATING DOWN RIGHT SHOULDER Time Seen by Provider: 06/25/21 04:09 - History of Present Illness INITIAL COMMENTS - FREE TEXT/NARRATIVE: CHIEF COMPLAINT(S): Neck pain HISTORY OF PRESENT ILLNESS: This is a 35-year-old woman without any significant past medical history who comes to the emergency department with a chief complaint of a right-sided neck pain. The patient states that for approximately 1 week now she has been experiencing right-sided neck pain. She describes the pain as 8 out of 10 and achy. She states that the pain is exacerbated by turning her head the opposite direction. She feels like her muscle is tight. She states that she has tried [id number] pain medication which has not resolved it. She did states that she started to experience some right ear pain and was getting concerned. She states it is not improving. She denies any radiation this pain, blurry vision, double vision, headache, numbness, tingling, weakness, trouble walking, speaking or swallowing. She denies any swelling of her throat. She denies any relieving factors. She denies any other symptoms. She does not know how this happened. REVIEW OF SYSTEMS: Constitutional: Denies fever, chills. Eyes: Denies eye pain Ears, Nose, Mouth, & Throat: Denies earache Cardiovascular: Denies chest pain Respiratory: Denies shortness of breath Gastrointestinal: Denies Nausea, vomiting, diarrhea, hematochezia. Genitourinary: Denies hematuria Skin:Denies a rash MSK: Positive for right-sided neck pain Neurological: Denies blurred vision Psychiatric: Denies depression PAST MEDICAL HISTORY: As per history of present illness and as reviewed below otherwise noncontributory. SURGICAL HISTORY: As per history of present illness and as reviewed below otherwise noncontributory. SOCIAL HISTORY: As per history of present illness and as reviewed below otherwise noncontributory. FAMILY HISTORY: As per history of present illness and as reviewed below otherwise noncontributory. EXAMINATION OF ORGAN SYSTEMS/BODY AREAS: Constitutional: Blood pressure is 159/82, heart rate 82, respiratory rate 18 with an oxygen saturation 99% on room air. Temperature 36.4 General: Overall well-appearing woman who is in no acute distress. Psychiatric: Appropriate mood and affect. Eyes: No scleral icterus or conjunctival erythema ENMT: Moist mucous membranes. No pharyngeal erythema no trismus, no drooling, no stridor. Neck is supple. No neck masses noted. No goiter. Patient speaking in full sentences. Cardiovascular: Regular, rate, and rhythm. No gallops, murmurs, or rubs. Bilateral upper extremity pulses symmetric and intact. No peripheral edema. No JVD. Respiratory: Lungs clear to auscultation bilaterally. No wheezes, rales, or rhonchi. 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: The patient has severe muscle tension located from the right base of her skull all the way to the trapezius to her right shoulder. This area is tender to palpation. There is no overlying skin changes. Skin: No lesions or abrasions. Neurological: Alert, GCS 15 strength and sensation grossly intact in upper and lower extremities bilaterally MEDICAL DECISION MAKING AND COURSE IN THE ED WITH INTERPRETATION/REVIEW OF DIAGNOSTIC STUDIES: This is a 35-year-old woman without any significant past medical history who comes to the emergency department with right neck strain. I did offer the patient Toradol, trigger point injection. She refused this. Therefore I discussed with her outpatient treatment. She states that she does not like pain medication. I discussed with her that she should use Tylenol, Motrin, Robaxin, stretching, ice, and heat. She is to follow-up with her primary care physician. She was amenable discharge at this time and had no further questions DISPOSITION: The patient was discharged home in stable condition. The patient will follow up with primary care physician in 3 to 5 days CONDITION: Fair PROCEDURES: None FINAL IMPRESSION(S)/DIAGNOSES: 1. Acute right neck strain Nolan Ocasio M.D. Neck Pain Score (Numeric/FACES): 8 - Related Data Allergies Allergy/AdvReac Type Severity Reaction Status Date / Time aspirin Allergy Airway Verified 06/25/21 04:07 Tightness gentamicin Allergy Rash Verified 06/25/21 04:07 Penicillins Allergy Rash Verified 06/25/21 04:07 tramadol Allergy Nausea and Verified 06/25/21 04:07 Vomiting Home Meds: Home Meds Esomeprazole Magnesium [Nexium 24Hr] 20 tab PO BID 06/22/18 [History] Cyclobenzaprine [Flexeril] 10 mg PO DAILY 01/08/20 [History] LORazepam [Lorazepam] 0.5 tab PO BID 01/08/20 [History] Ondansetron [Zofran ODT] 4 mg PO Q6H PRN #12 tab.dis 11/20/20 [Rx] methocarbamoL [Methocarbamol] 750 mg PO QID #28 tablet 06/25/21 [Rx] Past Medical History HEENT History: Reports: None Cardiovascular History: Reports: None Respiratory History: Reports: None Gastrointestinal History: Reports: GERD Genitourinary History: Reports: 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: 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 History: Reports: None Neurological History: Reports: None Psychiatric History: Reports: Anxiety, Depression, Panic Attack, PTSD Endocrine/Metabolic History: Reports: None Hematologic History: Reports: None Immunologic History: Reports: None Oncologic (Cancer) History: Reports: None Dermatologic History: Reports: None - Infectious Disease History Infectious Disease History: Reports: Chicken Pox - Past Surgical History Head Surgeries/Procedures: Reports: None HEENT Surgical History: Reports: Adenoidectomy, Oral Surgery, Tonsillectomy Other HEENT Surgeries/Procedures: wisdom teeth Cardiovascular Surgical History: Reports: None Respiratory Surgical History: Reports: None GI Surgical History: Reports: None Female Surgical History: Reports: Section, Tubal Ligation Endocrine Surgical History: Reports: None Neurological Surgical History: Reports: None 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 Surgical History: Reports: None Oncologic Surgical History: Reports: None Dermatological Surgical History: Reports: None Social & Family History - Family History Family Medical History: No Pertinent Family History - Caffeine Use Caffeine Use: Reports: None - Recreational Drug Use Recreational Drug Use: No ED ROS GENERAL - Review of Systems Review Of Systems: See Below ED EXAM, GENERAL - Physical Exam Exam: See Below Course - Vital Signs Last Recorded V/S: Last Vital Signs Temp 36.4 C 06/25/21 04:08 Pulse 82 06/25/21 04:08 Resp 18 06/25/21 04:08 BP 159/82 H 06/25/21 04:08 Pulse Ox 99 06/25/21 04:08 Departure - Departure Time of Disposition: 04:36 Disposition: Home, Self-Care 01 Condition: Fair Clinical Impression: Neck muscle strain - Discharge Information *PRESCRIPTION DRUG MONITORING PROGRAM REVIEWED*: No *COPY OF PRESCRIPTION DRUG MONITORING REPORT IN PATIENT BEN: No Prescriptions: methocarbamoL [Methocarbamol] 750 mg PO QID #28 tablet Instructions: Muscle Strain, [id number], Cervical Strain and Sprain Rehab-SportsMed Referrals: Krista Cash, POSTAL SUPERINTENDENT [Primary Care Provider] - Forms: ED Department Discharge Additional Instructions: You were evaluated today on an emergent basis. At this time I do believe you are experiencing muscle strain in your neck. I recommend that she use Tylenol and Motrin scheduled for the next 2 to 3 days then as needed after that. I do recommend that she use methocarbamol/Robaxin as prescribed. You may try this tomorrow night when you are off of work. Please do the stretching as we discussed and alternate ice and heating pad. Please follow-up with primary care physician in 1 to 3 days. Please use: Tylenol 500-1000mg every 6 hours (DO NOT TAKE MORE THAN 4000mg in 1 day) Ibuprofen 400mg every 6 hours (Take with food as it can cause ulcers, GI upset) Example schedule: 8:00 AM (Tylenol 500-1000mg) 11:00 AM (Ibuprofen 400mg) 2:00 PM (Tylenol 500-1000mg) 5:00 PM (Ibuprofen 400mg) Ice the area 20 minutes 4 times per day [facility] [address] [place] [address] [place] [address] The patient is informed of any results of their evaluation and diagnostic workup and all questions are answered. They are given discharge instructions and return precautions. The patient is stable for discharge. The patient states they understand and agree with the plan and that they will return if their symptoms get worse or if they have any new concerns. The following information is given to patients seen in the emergency department who are being discharged to home. This information is to outline your options for follow-up care. We provide all patients seen in our emergency department with a follow-up referral. The need for follow-up, as well as the timing and circumstances, are variable depending upon the specifics of your emergency department visit. If you don't have a primary care physician on staff, we will provide you with a referral. We always advise you to contact your personal physician following an emergency department visit to inform them of the circumstance of the visit and for follow-up with them and/or the need for any referrals to a consulting specialist. The emergency department will also refer you to a specialist when appropriate. This referral assures that you have the opportunity for follow-up care with a specialist. All of these measure are taken in an effort to provide you with optimal care, which includes your follow-up. Under all circumstances we always encourage you to contact your private physician who remains a resource for coordinating your care. When calling for follow-up care, please make the office aware that this follow-up is from your recent emergency room visit. If for any reason you are refused follow-up, please contact the [facility] Emergency Department at and asked to speak to the emergency department charge nurse. Sepsis Event Note (ED) - Evaluation Sepsis Screening Result: No Definite Risk
== END 2021-06-25 04:47 | disposition home or self-care (01) ==
LOC: MW.ED 03:56
DX: S16.1XXA Strain of muscle, fascia and tendon at neck level, initial encounter (principal); K21.9 Gastro-esophageal reflux disease without esophagitis; Z88.0 Allergy status to penicillin; Z88.5 Allergy status to narcotic agent; Z88.8 Allergy status to other drugs, medicaments and biological substances; Z79.899 Other long term (current) drug therapy; X58.XXXA Exposure to other specified factors, initial encounter
CPT/HCPCS: 99283

== ENCOUNTER 2021-09-23 14:35 | Emergency (ER) | payer SELFPAY ==
--- NOTE | 2021-09-23 17:41 | PCM.EKG ---
#1 Interpretation EKG Interpretation Comments: EKG done 09/23/2021 at 2:30 PM shows sinus rhythm heart rate 81 AR 140 axis [address] and T impression normal
[2021-09-23] MEDS ORDERED: Sodium Chloride 0.9% 10 ML Syringe FLUSH PRN (18:27)
[2021-09-23] MEDS ORDERED: Sodium Chloride 0.9% 2.5 ML Syringe FLUSH PRN (18:27)
--- NOTE | 2021-09-23 18:40 | EDM.PDOC ---
<Patrick Caceres - Last Filed: 09/23/21 18:37> ED HPI GENERAL MEDICAL PROBLEM - General Chief Complaint: Chest Pain Stated Complaint: CHEST PAIN/TESTED POS FOR COVID Time Seen by Provider: 09/23/21 14:43 - History of Present Illness INITIAL COMMENTS - FREE TEXT/NARRATIVE: History of present illness: [] The patient had a positive Covid test yesterday and symptoms for 3 days. She has had upper respiratory symptoms and today she had 3 seconds of brief chest pain in anterior chest. She does not smoke. She is not treated for diabetes. She not treated for hypertension and hypercholesterol. The only person in her family had heart disease in grandfather. The patient is not vaccinated for COVID-19. She refused monoclonal antibodies because she does not want them but understands she is a candidate because of her weight. Patient is here for Covid test so she can get a work note. Review of systems: As per history of present illness and below otherwise all systems reviewed and negative. Past medical history: As per history of present illness and as reviewed below otherwise noncontributory. Surgical history: As per history of present illness and as reviewed below otherwise noncontributor y. Social history: No reported history of drug or alcohol abuse. Family history: As per history of present illness and as reviewed below otherwise noncontributory. Physical exam: Constitutional -obese with BMI 41.1-well developed, well-nourished and in no acute distress HEENT - normocephalic, no evidence of trauma - external nose and mouth normal - no mass in neck and no JVD - mucosae moist EYES - full EOM, PERRL, no icterus - no evidence of inflammation, injection, or drainage Respiratory - no respiratory distress, equal bilateral expansion, lungs clear to auscultation and no abnormal lung sounds Cardiovascular - Regular Rhythm with S1 and S2 appreciated and no murmur, gallop or rub. GI - abdomen soft without distension or organomegaly - normal bowel sounds - no guard or rebound 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 no gross deformity of long bones or joints - no tenderness, swelling or edema Neurologic - Alert and oriented times four - CN II-XII grossly intact - motor sensory and coordination symmetrically normal Psychiatric - appropriate mood and affect with normal thought content Hematologic - No petechiae or purpura - mucosa appropriate color and sclera not pale - normal nail bed color and refill Integument - no rash or evidence of trauma - normal turgor Diagnostics: [] Therapeutics: [] Impression: [] Plan: [] Definitive disposition and diagnosis as appropriate pending reevaluation and review of above. Chest Pain Score (Numeric/FACES): 3 - Related Data Allergies Allergy/AdvReac Type Severity Reaction Status Date / Time aspirin Allergy Airway Verified 09/23/21 14:41 Tightness gentamicin Allergy Rash Verified 09/23/21 14:41 Penicillins Allergy Rash Verified 09/23/21 14:41 tramadol Allergy Nausea and Verified 09/23/21 14:41 Vomiting Home Meds: Home Meds Esomeprazole Magnesium [Nexium 24Hr] 20 tab PO BID 06/22/18 [History] Cyclobenzaprine [Flexeril] 10 mg PO DAILY 01/08/20 [History] LORazepam [Lorazepam] 0.5 tab PO BID 01/08/20 [History] Ondansetron [Zofran ODT] 4 mg PO Q6H PRN #12 tab.dis 11/20/20 [Rx] methocarbamoL [Methocarbamol] 750 mg PO QID #28 tablet 06/25/21 [Rx] PARoxetine HCl [Paxil] 10 mg PO 09/23/21 [History] Past Medical History HEENT History: Reports: None Cardiovascular History: Reports: None Respiratory History: Reports: None Gastrointestinal History: Reports: GERD Genitourinary History: Reports: 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: 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 History: Reports: None Neurological History: Reports: None Psychiatric History: Reports: Anxiety, Depression, Panic Attack, PTSD Endocrine/Metabolic History: Reports: None Hematologic History: Reports: None Immunologic History: Reports: None Oncologic (Cancer) History: Reports: None Dermatologic History: Reports: None - Infectious Disease History Infectious Disease History: Reports: Chicken Pox - Past Surgical History Head Surgeries/Procedures: Reports: None HEENT Surgical History: Reports: Adenoidectomy, Oral Surgery, Tonsillectomy Other HEENT Surgeries/Procedures: wisdom teeth Cardiovascular Surgical History: Reports: None Respiratory Surgical History: Reports: None GI Surgical History: Reports: None Female Surgical History: Reports: Section, Tubal Ligation Endocrine Surgical History: Reports: None Neurological Surgical History: Reports: None 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 Surgical History: Reports: None Oncologic Surgical History: Reports: None Dermatological Surgical History: Reports: None Social & Family History - Family History Family Medical History: No Pertinent Family History - Tobacco Use Tobacco Use Status *Q: Current Every Day Tobacco User Years of Tobacco use: 3 Packs/Tins Daily: 1 Second Hand Smoke Exposure: Yes - Caffeine Use Caffeine Use: Reports: Coffee, Soda ED ROS GENERAL - Review of Systems Review Of Systems: Comprehensive ROS is negative, except as noted in HPI. ED EXAM, GENERAL - Physical Exam Exam: See Below Free Text/Narrative:: My physical exam is in the HPI Departure - Departure Disposition: Home, Self-Care 01 Clinical Impression: COVID-19 - Discharge Information Instructions: COVID-19: What to Do If You Are Sick- [facility] (02/02/2021) Referrals: PCP,None [Primary Care Provider] - Forms: ED Department Discharge Additional Instructions: Please return to the emergency department if you are experiencing chest pain or difficulty breathing. The following information is given to patients seen in the emergency department who are being discharged to home. This information is to outline your options for follow-up care. We provide all patients seen in our emergency department with a follow-up referral. The need for follow-up, as well as the timing and circumstances, are variable depending upon the specifics of your emergency department visit. If you don't have a primary care physician on staff, we will provide you with a referral. We always advise you to contact your personal physician following an emergency department visit to inform them of the circumstance of the visit and for follow-up with them and/or the need for any referrals to a consulting specialist. The emergency department will also refer you to a specialist when appropriate. This referral assures that you have the opportunity for follow-up care with a specialist. All of these measure are taken in an effort to provide you with optimal care, which includes your follow-up. Under all circumstances we always encourage you to contact your private physician who remains a resource for coordinating your care. When calling for follow-up care, please make the office aware that this follow-up is from your recent emergency room visit. If for any reason you are refused follow-up, please contact the [facility] Emergency Department at and asked to speak to the emergency department charge nurse. Please follow up with your primary care physician. If you do not have a primary care physician, see below: [facility] [address] [place] [address] [phone] [facility] [address] [place] [address] [facility] [address] [place] [id number] Sepsis Event Note (ED) - Evaluation Sepsis Screening Result: No Definite Risk <Hari Lynn - Last Filed: 09/23/21 19:17> Course - Vital Signs Last Recorded V/S: Last Vital Signs Temp 98.6 F 09/23/21 18:28 Pulse 83 09/23/21 18:28 Resp 20 09/23/21 18:28 BP 139/90 09/23/21 18:28 Pulse Ox 99 09/23/21 18:28 - Orders/Labs/Meds Orders: Active Orders 24 hr Category Date Time Status Sodium Chloride 0.9% [Saline Flush] Med 09/23/21 18:27 Active 10 ml FLUSH ASDIRECTED PRN Sodium Chloride 0.9% [Saline Flush] Med 09/23/21 18:27 Active 2.5 ml FLUSH ASDIRECTED PRN Saline Lock Insert [OM.PC] Stat Oth 09/23/21 18:27 Ordered Medication Orders Sodium Chloride (Sodium Chloride 0.9% 10 Ml Syringe) 10 ml FLUSH ASDIRECTED PRN PRN Reason: Keep Vein Open Sodium Chloride (Sodium Chloride 0.9% 2.5 Ml Syringe) 2.5 ml FLUSH ASDIRECTED PRN PRN Reason: Keep Vein Open Labs: Laboratory Tests 09/23/21 09/23/21 Range/Units 15:42 18:30 Urine Color YELLOW Urine Appearance CLEAR Urine pH 7.5 (5.0-8.0) Ur Specific [place] 1.010 (1.001-1.035) Urine Protein NEGATIVE (NEGATIVE) mg/dL Urine Glucose (UA) NEGATIVE (NEGATIVE) mg/dL Urine Ketones NEGATIVE (NEGATIVE) mg/dL Urine Occult Blood NEGATIVE (NEGATIVE) Urine Nitrite NEGATIVE (NEGATIVE) Urine Bilirubin NEGATIVE (NEGATIVE) Urine Urobilinogen 0.2 (<2.0) EU/dL Ur Leukocyte Esterase NEGATIVE (NEGATIVE) SARS-CoV-2 RNA (ORION) POSITIVE H (NEGATIVE) Meds: Medications Generic Name Dose Route Start Last Admin Trade Name Freq PRN Reason Stop Dose Admin Sodium Chloride 10 ml 09/23/21 18:27 Sodium Chloride 0.9% 10 Ml Syringe FLUSH ASDIRECTED PRN Keep Vein Open Sodium Chloride 2.5 ml 09/23/21 18:27 Sodium Chloride 0.9% 2.5 Ml Syringe FLUSH ASDIRECTED PRN Keep Vein Open - Re-Assessments/Exams Free Text/Narrative Re-Assessment/Exam: 09/23/21 19:16 Covid testing is positive. Will discharge with a work note. Departure - Departure Time of Disposition: 19:16 Condition: Good Sepsis Event Note (ED) - Focused Exam Vital Signs: Vital Signs Temp Pulse Resp BP Pulse Ox 09/23/21 18:28 98.6 F 83 20 139/90 99 09/23/21 14:37 99.4 F 85 16 148/77 H 98
== END 2021-09-23 19:24 | disposition home or self-care (01) ==
LOC: MW.ED 14:35
DX: U07.1 COVID-19 (principal); K21.9 Gastro-esophageal reflux disease without esophagitis; Z79.899 Other long term (current) drug therapy; Z88.0 Allergy status to penicillin; Z88.5 Allergy status to narcotic agent; Z72.0 Tobacco use
CPT/HCPCS: 81003; 93005; 99285-25; U0002

== ENCOUNTER 2021-10-31 15:30 | Emergency (ER) | payer SELFPAY ==
--- NOTE | 2021-10-31 15:38 | PCM.EKG ---
#1 Interpretation Time: 15:32 EKG Interpretation Comments: EKG: NSR, nonspecific ST/T changes, Rate -77
== END 2021-10-31 19:26 | disposition left against medical advice (07) ==
LOC: MW.ED 15:30
DX: Z53.21 Procedure and treatment not carried out due to patient leaving prior to being seen by health care provider (principal)
CPT/HCPCS: 93005

== ENCOUNTER 2021-11-01 00:49 | Emergency (ER) | payer SELFPAY ==
--- NOTE | 2021-11-01 01:59 | EDM.PDOC ---
ED HPI GENERAL MEDICAL PROBLEM - General Chief Complaint: Respiratory Problem Stated Complaint: CHEST PAIN AND HIGH BLOOD PRESSURE Time Seen by Provider: 11/01/21 01:58 Source of Information: Reports: Patient History Limitations: Reports: No Limitations - History of Present Illness INITIAL COMMENTS - FREE TEXT/NARRATIVE: 36-year-old female with history of panic disorder, PTSD, anxiety, asthma presents with shortness of breath over the past 2 days. She has felt intermittent episodes of dyspnea lasting about 30 minutes each. She has had 4 episodes over the past 2 days. She denies chest pain, pleurisy, fever, chills, cough, diarrhea. She vomited once. She currently has no complaints of shortness of breath. SHe tested positive for covid 09/23/21. ROS: A 10-point review of systems, other than pertinent positives and negatives as stated per HPI, is otherwise negative Past medical history: No additional pertinent history Past Surgical history: No additional pertinent history Social history: No additional pertinent history Family history: No additional pertinent history PHYSICAL EXAM General: AOx4, GCS = 15, morbid obesity, no distress HEENT: dry mucous membrane Neck: supple, no meningismus, no Kernig or Brudzinski Cardiac: S1S2 RRR Respiratory: CTAB, no crackles or rales, no wheezing Abdomen: Soft, nontender, no rebound or guarding, nondistended, no pulsatile mass. Back: nontender 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: NVI distally, no deformity Neuro: No focal deficits, CN 2 - 12 WNL. - Related Data Allergies Allergy/AdvReac Type Severity Reaction Status Date / Time aspirin Allergy Airway Verified 10/31/21 15:37 Tightness gentamicin Allergy Rash Verified 10/31/21 15:37 Penicillins Allergy Rash Verified 10/31/21 15:37 tramadol Allergy Nausea and Verified 10/31/21 15:37 Vomiting Home Meds: Home Meds Esomeprazole Magnesium [Nexium 24Hr] 20 tab PO BID 06/22/18 [History] Cyclobenzaprine [Flexeril] 10 mg PO DAILY 01/08/20 [History] LORazepam [Lorazepam] 0.5 tab PO BID 01/08/20 [History] PARoxetine HCl [Paxil] 10 mg PO DAILY 09/23/21 [History] Past Medical History HEENT History: Reports: None Cardiovascular History: Reports: None Respiratory History: Reports: None Gastrointestinal History: Reports: GERD Genitourinary History: Reports: None DECORATING CONSULTANT History: Reports: 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 History: Reports: None Neurological History: Reports: None Psychiatric History: Reports: Anxiety, Depression, Panic Attack, PTSD Endocrine/Metabolic History: Reports: None Hematologic History: Reports: None Immunologic History: Reports: None Oncologic (Cancer) History: Reports: None Dermatologic History: Reports: None - Infectious Disease History Infectious Disease History: Reports: Chicken Pox, Novel Coronavirus - Past Surgical History Head Surgeries/Procedures: Reports: None HEENT Surgical History: Reports: Adenoidectomy, Oral Surgery, Tonsillectomy Other HEENT Surgeries/Procedures: wisdom teeth Cardiovascular Surgical History: Reports: None Respiratory Surgical History: Reports: None GI Surgical History: Reports: None Female Surgical History: Reports: Section, Tubal Ligation Endocrine Surgical History: Reports: None Neurological Surgical History: Reports: None 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 Surgical History: Reports: None Oncologic Surgical History: Reports: None Dermatological Surgical History: Reports: None Social & Family History - Family History Family Medical History: No Pertinent Family History - Caffeine Use Caffeine Use: Reports: Coffee, Soda ED ROS GENERAL - Review of Systems Review Of Systems: See Below (see dictation) ED EXAM, GENERAL - Physical Exam Exam: See Below (see dictation) #1 Interpretation EKG Interpretation Comments: Heart rate = 87 bpm, normal sinus rhythm, normal QRS interval, no STEMI. EKG and rhythm strip interpreted by me at 1254 Course - Vital Signs Last Recorded V/S: Last Vital Signs Temp 96.6 F L 11/01/21 00:59 Pulse 89 11/01/21 00:59 Resp 16 11/01/21 00:59 BP 127/83 11/01/21 00:59 Pulse Ox 97 11/01/21 00:59 - Orders/Labs/Meds Orders: Active Orders 24 hr Category Date Time Status Cardiac Monitoring [RC] . DIRECTED Care 11/01/21 02:17 Active Saline Lock Insert [OM.PC] Routine Oth 11/01/21 02:17 Ordered Labs: Laboratory Tests 11/01/21 11/01/21 11/01/21 Range/Units 02:20 02:38 02:38 WBC 8.58 (4.0-11.0) K/uL RBC 4.69 (4.30-5.90) M/uL Hgb 12.8 (12.0-16.0) g/dL Hct 38.6 (36.0-46.0) % MCV 82.3 (80.0-98.0) fL MCH 27.3 (27.0-32.0) pg MCHC 33.2 (31.0-37.0) g/dL RDW Std Deviation 44.5 (28.0-62.0) fl RDW Coeff of Ashutosh 15 (11.0-15.0) % Plt Count 255 (150-400) K/uL MPV 10.90 (7.40-12.00) fL Neut % (Auto) 56.0 (48.0-80.0) % Lymph % (Auto) 34.8 (16.0-40.0) % Ida % (Auto) 6.9 (0.0-15.0) % Eos % (Auto) 2.0 (0.0-7.0) % Baso % (Auto) 0.3 (0.0-1.5) % Neut # (Auto) 4.8 (1.4-5.7) K/uL Lymph # (Auto) 3.0 H (0.6-2.4) K/uL Ida # (Auto) 0.6 (0.0-0.8) K/uL Eos # (Auto) 0.2 (0.0-0.7) K/uL Baso # (Auto) 0.0 (0.0-0.1) K/uL Nucleated RBC % 0.0 /100WBC Nucleated RBCs # 0 K/uL Sodium 141 (136-145) mmol/L Potassium 3.9 (3.5-5.1) mmol/L Chloride 105 (98-107) mmol/L Carbon Dioxide 26.6 (21.0-32.0) mmol/L BUN 13 (7.0-18.0) mg/dL Creatinine 0.8 (0.6-1.0) mg/dL Est Cr Clr Drug Dosing TNP Estimated GFR (MDRD) > 60.0 ml/min Glucose 127 H (74-106) mg/dL Calcium 9.1 (8.5-10.1) mg/dL Total Bilirubin 0.3 (0.2-1.0) mg/dL AST 19 (15-37) IU/L ALT 49 (14-63) IU/L Alkaline Phosphatase 70 (46-116) U/L Troponin I < 0.050 (0.000-0.056) ng/mL Total Protein 7.3 (6.4-8.2) g/dL Albumin 3.5 (3.4-5.0) g/dL Globulin 3.8 (2.6-4.0) g/dL Albumin/Globulin Ratio 0.9 (0.9-1.6) SARS-CoV-2 RNA (ORION) NEGATIVE (NEGATIVE) Meds: Medications Discontinued Medications Generic Name Dose Route Start Last Admin Trade Name Freq PRN Reason Stop Dose Admin Sodium Chloride 10 ml 11/01/21 02:17 Sodium Chloride 0.9% 10 Ml Syringe FLUSH ASDIRECTED PRN Keep Vein Open Sodium Chloride 2.5 ml 11/01/21 02:17 Sodium Chloride 0.9% 2.5 Ml Syringe FLUSH ASDIRECTED PRN Keep Vein Open - Re-Assessments/Exams Free Text/Narrative Re-Assessment/Exam: 11/01/21 03:51 Her symptoms improved and is currently stable for discharge. I performed a repeat exam and did not appreciate new abnormal findings. Patient exhibits normal vital signs and has a normal gait on road test. I advised the patient to return to the ER for reevaluation if symptoms worsened, including fever, worsening pain, or any other worrisome symptoms. I instructed the patient to follow up with their PCP within 2-3 days. MEDICAL DECISION MAKING: This patient was evaluated during the COVID-19 pandemic where resources and capacity might be affected. I reviewed the patients past medical records, lab and radiographic findings. I discussed the case with the patient. My differential diagnosis included: Anxiety, COVID, pneumonia, atypical chest pain. EKG and chest x-ray and troponin were unremarkable, do not suspect pneumonia, pneumothorax, aortic dissection, atypical chest pain. She was tested negative for Covid. Her symptoms today were transient and episodic, consistent with anxiety. Departure - Departure Time of Disposition: 03:53 Disposition: Home, Self-Care 01 Condition: Good Clinical Impression: Panic attack - Discharge Information *PRESCRIPTION DRUG MONITORING PROGRAM REVIEWED*: Not Applicable *COPY OF PRESCRIPTION DRUG MONITORING REPORT IN PATIENT BEN: Not Applicable Instructions: Shortness of Breath, Adult, [id number], Panic Attack, [id number] Referrals: Krista Cash NP [Primary Care Provider] - 3 Days Forms: ED Department Discharge Additional Instructions: The need for follow-up, as well as the timing and circumstances, are variable depending upon the specifics of your emergency department visit. If you don't have a primary care physician on staff, we will provide you with a referral. We always advise you to contact your personal physician following an emergency department visit to inform them of the circumstance of the visit and for follow-up with them and/or the need for any referrals to a consulting specialist. The emergency department will also refer you to a specialist when appropriate. This referral assures that you have the opportunity for follow-up care with a specialist. All of these measure are taken in an effort to provide you with optimal care, which includes your follow-up. Under all circumstances we always encourage you to contact your private physician who remains a resource for coordinating your care. When calling for follow-up care, please make the office aware that this follow-up is from your recent emergency room visit. If for any reason you are refused follow-up, please contact the [facility] Emergency Department at and asked to speak to the emergency department charge nurse. If you do not have a primary care doctor, please follow up with the clinics below within 3-5 days. [facility] [address] [place] [id number] [address] [place] [place] [address] Sepsis Event Note (ED) - Evaluation Sepsis Screening Result: No Definite Risk - Focused Exam Vital Signs: Vital Signs Temp Pulse Resp BP Pulse Ox 11/01/21 00:59 96.6 F L 89 16 127/83 97 - My Orders Last 24 Hours: My Active Orders 11/01/21 02:17 Cardiac Monitoring [RC] . DIRECTED Saline Lock Insert [OM.PC] Routine - Assessment/Plan Last 24 Hours: My Active Orders 11/01/21 02:17 Cardiac Monitoring [RC] . DIRECTED Saline Lock Insert [OM.PC] Routine
[2021-11-01] MEDS ORDERED: Sodium Chloride 0.9% 10 ML Syringe FLUSH PRN (02:17)
[2021-11-01] MEDS ORDERED: Sodium Chloride 0.9% 2.5 ML Syringe FLUSH PRN (02:17)
--- NOTE | 2021-11-01 02:39 | CR ---
INDICATION: Chest pain TECHNIQUE: Chest radiograph 1 view COMPARISON: 11/19/2020 FINDINGS: The sensitivity and specificity of the exam are moderately limited by the patient`s body habitus. Mediastinum: The mediastinum is normal in appearance. The heart silhouette is normal in size and morphology. Lung: Both lungs are unremarkable in appearance with small lung volumes. No sign of pleural effusion seen. No pneumothorax is identified. Bone and Soft tissue: Unremarkable for age. IMPRESSION: 1. No acute cardiopulmonary disease is seen. Dictated by: Jean Claude Finn MD @ 11/01/2021 02:38:22 (Electronically Signed)
[2021-11-01 03:12] LABS: BLOOD UREA NITROGEN,BUN 13 mg/dL (7.0-18.0); CARBON DIOXIDE,CO2 26.6 mmol/L (21.0-32.0); CHLORIDE,CL 105 mmol/L (98-107); GLUCOSE RANDOM 127 mg/dL (74-106); POTASSIUM,K 3.9 mmol/L (3.5-5.1); SODIUM,NA 141 mmol/L (136-145)
== END 2021-11-01 04:05 | disposition home or self-care (01) ==
LOC: MW.ED 00:49
DX: F41.0 Panic disorder [episodic paroxysmal anxiety] (principal); K21.9 Gastro-esophageal reflux disease without esophagitis; Z86.16 Personal history of COVID-19; Z88.0 Allergy status to penicillin; Z88.5 Allergy status to narcotic agent; Z88.1 Allergy status to other antibiotic agents; Z20.822 Contact with and (suspected) exposure to COVID-19
CPT/HCPCS: 36415; 71045; 71045-26; 80053; 84484; 85025; 93005; 99285-25; U0002

== ENCOUNTER 2021-12-19 02:12 | Emergency (ER) | payer SELFPAY ==
[2021-12-19] MEDS ORDERED: Sodium Chloride 0.9% 1,000 ML IV ONE (02:31)
[2021-12-19] MEDS ORDERED: LORazepam 2 MG/ML SDV IVPUSH ONE (02:31)
[2021-12-19 03:38] LABS: BLOOD UREA NITROGEN,BUN 9 mg/dL (7.0-18.0); CHLORIDE,CL 102 mmol/L (98-107); GLUCOSE RANDOM 122 mg/dL (74-106); POTASSIUM,K 4.1 mmol/L (3.5-5.1); SODIUM,NA 140 mmol/L (136-145)
== END 2021-12-19 03:53 | disposition home or self-care (01) ==
LOC: MW.ED 02:12
DX: R00.2 Palpitations (principal); K21.9 Gastro-esophageal reflux disease without esophagitis; Z88.0 Allergy status to penicillin; Z88.5 Allergy status to narcotic agent; Z88.8 Allergy status to other drugs, medicaments and biological substances; Z79.899 Other long term (current) drug therapy
CPT/HCPCS: 36415; 71045; 80053; 81001; 81025; 84484; 85025; 87804; 93005; 96374; 99285; J2060; J7030

== ENCOUNTER 2022-01-04 18:11 | Emergency (ER) | payer SELFPAY ==
[2022-01-04 20:04] LABS: BLOOD UREA NITROGEN,BUN 9 mg/dL (7.0-18.0); CARBON DIOXIDE,CO2 28.9 mmol/L (21.0-32.0); CHLORIDE,CL 103 mmol/L (98-107); GLUCOSE RANDOM 94 mg/dL (74-106); SODIUM,NA 141 mmol/L (136-145)
== END 2022-01-04 22:44 | disposition home or self-care (01) ==
LOC: MW.ED 18:11
DX: R20.2 Paresthesia of skin (principal); Z88.8 Allergy status to other drugs, medicaments and biological substances; Z88.0 Allergy status to penicillin; Z88.5 Allergy status to narcotic agent
CPT/HCPCS: 36415; 71045; 71045-26; 80053; 84484; 85025; 93005; 93010; 99283; 99284-25; U0002

== ENCOUNTER 2022-05-05 22:15 | Emergency (ER) | payer SELFPAY ==
[2022-05-06] MEDS ORDERED: Ondansetron 4 MG/2 ML SDV IVPUSH ONE (01:29)
[2022-05-06] MEDS ORDERED: Dextrose 5%-Lactated Ringers 1,000 ML IV SCH (01:30)
[2022-05-06] MEDS ORDERED: Pantoprazole 80 MG in Sodium Chloride 0.9% 10 ML IVPUSH ONE (01:31)
[2022-05-06] MEDS ORDERED: Dextrose 5%-Lactated Ringers 1,000 ML IV STA (01:47)
[2022-05-06 03:36] LABS: CARBON DIOXIDE,CO2 26.7 mmol/L (21.0-32.0); POTASSIUM,K 4.3 mmol/L (3.5-5.1)
[2022-05-06 04:02] LABS: CORONAVIRUS COVID-19 NAA NEGATIVE (NEGATIVE); INFLUENZA A NAA NEGATIVE (NEGATIVE); INFLUENZA B NAA NEGATIVE (NEGATIVE)
== END 2022-05-06 04:15 | disposition home or self-care (01) ==
LOC: MW.ED 22:15
DX: E86.0 Dehydration (principal); R11.2 Nausea with vomiting, unspecified; Z20.822 Contact with and (suspected) exposure to COVID-19; Z88.6 Allergy status to analgesic agent; Z88.0 Allergy status to penicillin; Z88.5 Allergy status to narcotic agent; Z79.899 Other long term (current) drug therapy
CPT/HCPCS: 0240U; 36415; 80053; 81003; 81025; 83690; 85025; 96361; 96374; 96375; 99284; C9113; J2405; J3490; J7121

== ENCOUNTER 2022-06-26 18:48 | Emergency (ER) | payer SELFPAY ==
[2022-06-26] MEDS ORDERED: Diazepam 5 MG Tab PO ONE (19:06)
[2022-06-26 19:53] LABS: BLOOD UREA NITROGEN,BUN 11 mg/dL (7.0-18.0); CARBON DIOXIDE,CO2 25.9 mmol/L (21.0-32.0); CHLORIDE,CL 104 mmol/L (98-107); GLUCOSE RANDOM 105 mg/dL (74-106); POTASSIUM,K 4.1 mmol/L (3.5-5.1); SODIUM,NA 140 mmol/L (136-145)
[2022-06-26 19:55] LABS: ESTIMATED GFR 115 mL/min (>60)
[2022-06-26] MEDS ORDERED: Dexamethasone 10 MG/ML SDV IM STA (20:06)
== END 2022-06-26 20:15 | disposition home or self-care (01) ==
LOC: MW.ED 18:48
DX: M54.2 Cervicalgia (principal); K21.9 Gastro-esophageal reflux disease without esophagitis; Z79.899 Other long term (current) drug therapy; E66.9 Obesity, unspecified; Z68.37 Body mass index [BMI] 37.0-37.9, adult; Z88.1 Allergy status to other antibiotic agents; Z88.8 Allergy status to other drugs, medicaments and biological substances
CPT/HCPCS: 36415; 80053; 84484; 85025; 93005; 96372; 99283; A9270; J1100; 93010

== ENCOUNTER 2022-10-22 23:39 | Emergency (ER) | payer SELFPAY | END 2022-10-23 00:56 | disposition home or self-care (01) | LOC: MW.ED 23:39 | DX: F41.9 Anxiety disorder, unspecified (principal); M79.601 Pain in right arm; K21.9 Gastro-esophageal reflux disease without esophagitis; Z88.8 Allergy status to other drugs, medicaments and biological substances; Z88.1 Allergy status to other antibiotic agents; Z88.0 Allergy status to penicillin; Z88.5 Allergy status to narcotic agent; Z79.899 Other long term (current) drug therapy | CPT/HCPCS: 93005; 99284 ==

== ENCOUNTER 2022-12-07 16:04 | Emergency (ER) | payer SELFPAY ==
[2022-12-07 18:13] LABS: CORONAVIRUS COVID-19 NAA NEGATIVE (NEGATIVE); INFLUENZA A NAA NEGATIVE (NEGATIVE); INFLUENZA B NAA NEGATIVE (NEGATIVE); RESPIRATORY SYNCYTIAL VIR NAA NEGATIVE (NEGATIVE)
[2022-12-07 18:14] LABS: CARBON DIOXIDE,CO2 24.3 mmol/L (21.0-32.0); POTASSIUM,K 4.2 mmol/L (3.5-5.1)
== END 2022-12-07 19:03 | disposition home or self-care (01) ==
LOC: MW.ED 16:04
DX: R07.89 Other chest pain (principal); F41.9 Anxiety disorder, unspecified; Z88.6 Allergy status to analgesic agent; Z88.1 Allergy status to other antibiotic agents; Z88.0 Allergy status to penicillin; Z88.5 Allergy status to narcotic agent; Z79.899 Other long term (current) drug therapy; Z79.84 Long term (current) use of oral hypoglycemic drugs; Z86.16 Personal history of COVID-19; Z20.822 Contact with and (suspected) exposure to COVID-19
CPT/HCPCS: 0241U; 36415; 71045; 80053; 84484; 85025; 93005; 99285

== ENCOUNTER 2023-10-05 16:15 | Emergency (ER) | payer BC ==
[2023-10-05] MEDS ORDERED: Sodium Chloride 0.9% 2.5 ML Syringe FLUSH PRN (19:31)
[2023-10-05] MEDS ORDERED: Sodium Chloride 0.9% 10 ML Syringe FLUSH PRN (19:31)
[2023-10-05] MEDS ORDERED: Ketorolac 30 MG/ML SDV IVPUSH ONE (19:32)
[2023-10-05] MEDS ORDERED: Sodium Chloride 0.9% 1,000 ML IV ONE (19:33)
[2023-10-05 20:17] LABS: BASOPHILS ABSOLUTE AUTO 0.04 K/uL (0.00-0.20); BASOPHILS PERCENT AUTO 0.5 % (0.0-1.0); EOSINOPHILS ABSOLUTE AUTO 0.13 K/uL (0.00-0.45); EOSINOPHILS PERCENT AUTO 1.7 % (0.0-6.0); HEMATOCRIT 38.4 % (37.0-47.0); HEMOGLOBIN 12.7 g/dL (12.0-16.0); IMMATURE GRAN ABSOLUTE AUTO 0.01 K/uL (0.00-0.05); IMMATURE GRAN PERCENT AUTO 0.1 % (0.0-0.4); LYMPHOCYTES ABSOLUTE AUTO 3.37 K/uL (1.00-4.80); LYMPHOCYTES PERCENT AUTO 44.9 % (24.0-44.0); MEAN CORPUSCULAR HEMOGLOBIN 26.7 pg (28.0-32.0); MEAN CORPUSCULAR HGB CONC 33.1 g/dL (32.0-36.0); MEAN CORPUSCULAR VOLUME 80.7 fL (83.0-99.0); MEAN PLATELET VOLUME 10.2 fL (9.4-12.3); MONOCYTES ABSOLUTE AUTO 0.68 K/uL (0.00-0.80); MONOCYTES PERCENT AUTO 9.1 % (0.0-8.0); NEUTROPHILS ABSOLUTE AUTO 3.28 K/uL (1.80-7.70); NEUTROPHILS PERCENT AUTO 43.7 % (41.0-71.0); PLATELET COUNT,PLT 273 K/uL (150-400); RED BLOOD CELL COUNT 4.76 M/uL (4.10-5.30); WHITE BLOOD CELL COUNT,WBC 7.51 K/uL (3.9-11.3)
[2023-10-05 20:17] LABS: APPEARANCE,URINE CLEAR; BILIRUBIN,URINE NEGATIVE (NEGATIVE); COLOR,URINE YELLOW; GLUCOSE,URINE NEGATIVE (NEGATIVE); KETONES,URINE NEGATIVE (NEGATIVE); LEUKOCYTE ESTERASE,URINE NEGATIVE (NEGATIVE); NITRITE,URINE NEGATIVE (NEGATIVE); OCCULT BLOOD,URINE NEGATIVE (NEGATIVE); PROTEIN,URINE NEGATIVE (NEGATIVE); UROBILINOGEN,URINE 0.2 EU/dL (<2.0)
[2023-10-05 20:38] LABS: ALBUMIN 3.9 g/dL (3.4-5.0); BILIRUBIN TOTAL 0.3 mg/dL (0.2-1.0); CARBON DIOXIDE,CO2 29.2 mmol/L (21.0-32.0); CREATININE 0.8 mg/dL (0.6-1.0); EST CRCL DRUG DOSING (CG) 79.65 mL/min; POTASSIUM,K 3.5 mmol/L (3.5-5.1); PROTEIN TOTAL,TP 7.8 g/dL (6.4-8.2)
[2023-10-05] MEDS ORDERED: Naloxone 0.4 MG/ML SDV IVPUSH PRN (20:41)
[2023-10-05] MEDS ORDERED: Morphine 4 MG/ML Syringe IVPUSH PRN (20:41)
[2023-10-05 21:11] LABS: BACTERIA,URINE RARE (NEGATIVE); EPITHELIAL CELLS,URINE FEW (NONE-FEW); RBC,URINE 0-1 (0-2/HPF); WBC,URINE 0-1 (0-5/HPF)
== END 2023-10-05 22:18 | disposition home or self-care (01) ==
LOC: MW.ED 16:15
DX: R10.11 Right upper quadrant pain (principal); R07.81 Pleurodynia; K21.9 Gastro-esophageal reflux disease without esophagitis; Z72.0 Tobacco use; Z88.8 Allergy status to other drugs, medicaments and biological substances; Z88.0 Allergy status to penicillin; Z88.1 Allergy status to other antibiotic agents; Z79.899 Other long term (current) drug therapy; Z86.16 Personal history of COVID-19
CPT/HCPCS: 36415; 76705; 80053; 81001; 81025; 83690; 85025; 96361; 96374; 96375; 99284; J1885; J2270; J3490; J7030

== ENCOUNTER 2023-12-09 08:29 | Emergency (ER) | payer BC ==
[2023-12-09] MEDS ORDERED: Sodium Chloride 0.9% 1,000 ML IV ONE (08:39)
[2023-12-09 09:14] LABS: BASOPHILS ABSOLUTE AUTO 0.02 K/uL (0.00-0.20); BASOPHILS PERCENT AUTO 0.2 % (0.0-1.0); EOSINOPHILS ABSOLUTE AUTO 0.23 K/uL (0.00-0.45); EOSINOPHILS PERCENT AUTO 2.3 % (0.0-6.0); HEMATOCRIT 36.1 % (37.0-47.0); HEMOGLOBIN 11.4 g/dL (12.0-16.0); IMMATURE GRAN ABSOLUTE AUTO 0.03 K/uL (0.00-0.05); IMMATURE GRAN PERCENT AUTO 0.3 % (0.0-0.4); LYMPHOCYTES ABSOLUTE AUTO 2.49 K/uL (1.00-4.80); LYMPHOCYTES PERCENT AUTO 24.5 % (24.0-44.0); MEAN CORPUSCULAR HEMOGLOBIN 25.4 pg (28.0-32.0); MEAN CORPUSCULAR HGB CONC 31.6 g/dL (32.0-36.0); MEAN CORPUSCULAR VOLUME 80.4 fL (83.0-99.0); MEAN PLATELET VOLUME 10.2 fL (9.4-12.3); MONOCYTES ABSOLUTE AUTO 0.57 K/uL (0.00-0.80); MONOCYTES PERCENT AUTO 5.6 % (0.0-8.0); NEUTROPHILS ABSOLUTE AUTO 6.81 K/uL (1.80-7.70); NEUTROPHILS PERCENT AUTO 67.1 % (41.0-71.0); PLATELET COUNT,PLT 277 K/uL (150-400); RED BLOOD CELL COUNT 4.49 M/uL (4.10-5.30); WHITE BLOOD CELL COUNT,WBC 10.15 K/uL (3.9-11.3)
[2023-12-09 09:41] LABS: A/G RATIO 0.8 (0.9-1.6); ALBUMIN 3.2 g/dL (3.4-5.0); BILIRUBIN TOTAL 0.4 mg/dL (0.2-1.0); C-REACTIVE PROTEIN 4.34 mg/dL (<0.3); CALCIUM 8.8 mg/dL (8.5-10.1); CARBON DIOXIDE,CO2 28.5 mmol/L (21.0-32.0); CREATININE 0.8 mg/dL (0.6-1.0); EST CRCL DRUG DOSING (CG) 78.87 mL/min; MAGNESIUM 1.8 mg/dL (1.8-2.4); POTASSIUM,K 4.3 mmol/L (3.5-5.1); PROTEIN TOTAL,TP 7.4 g/dL (6.4-8.2)
[2023-12-09] MEDS ORDERED: Dexamethasone 10 MG/ML SDV IVPUSH ONE (10:05)
== END 2023-12-09 10:27 | disposition home or self-care (01) ==
LOC: MW.ED 08:29
DX: A31.0 Pulmonary mycobacterial infection (principal); Z88.0 Allergy status to penicillin; Z88.5 Allergy status to narcotic agent; Z88.8 Allergy status to other drugs, medicaments and biological substances; Z79.2 Long term (current) use of antibiotics; Z79.899 Other long term (current) drug therapy
CPT/HCPCS: 36415; 71045; 80053; 83735; 84484; 85025; 86140; 96361; 96374; 99285; J1100; J7030; 93005; 93010; 99284

== ENCOUNTER 2024-07-17 13:52 | Emergency (ER) | payer BC ==
[2024-07-17] MEDS: Sodium Chloride 0.9% 1,000 ML IV STA (14:58)
[2024-07-17 15:02] LABS: BASOPHILS ABSOLUTE AUTO 0.04 K/uL (0.00-0.20); BASOPHILS PERCENT AUTO 0.7 % (0.0-1.0); EOSINOPHILS ABSOLUTE AUTO 0.19 K/uL (0.00-0.45); EOSINOPHILS PERCENT AUTO 3.1 % (0.0-6.0); HEMATOCRIT 38.5 % (37.0-47.0); HEMOGLOBIN 12.3 g/dL (12.0-16.0); IMMATURE GRAN ABSOLUTE AUTO 0.02 K/uL (0.00-0.05); IMMATURE GRAN PERCENT AUTO 0.3 % (0.0-0.4); LYMPHOCYTES ABSOLUTE AUTO 2.53 K/uL (1.00-4.80); LYMPHOCYTES PERCENT AUTO 41.4 % (24.0-44.0); MEAN CORPUSCULAR HEMOGLOBIN 25.2 pg (28.0-32.0); MEAN CORPUSCULAR HGB CONC 31.9 g/dL (32.0-36.0); MEAN CORPUSCULAR VOLUME 78.9 fL (83.0-99.0); MEAN PLATELET VOLUME 10.3 fL (9.4-12.3); MONOCYTES ABSOLUTE AUTO 0.46 K/uL (0.00-0.80); MONOCYTES PERCENT AUTO 7.5 % (0.0-8.0); NEUTROPHILS ABSOLUTE AUTO 2.87 K/uL (1.80-7.70); PLATELET COUNT,PLT 270 K/uL (150-400); RED BLOOD CELL COUNT 4.88 M/uL (4.10-5.30); WHITE BLOOD CELL COUNT,WBC 6.11 K/uL (3.9-11.3)
[2024-07-17 15:25] LABS: APPEARANCE,URINE CLEAR; BILIRUBIN,URINE NEGATIVE (NEGATIVE); COLOR,URINE YELLOW; GLUCOSE,URINE NEGATIVE (NEGATIVE); KETONES,URINE NEGATIVE (NEGATIVE); LEUKOCYTE ESTERASE,URINE NEGATIVE (NEGATIVE); NITRITE,URINE NEGATIVE (NEGATIVE); OCCULT BLOOD,URINE NEGATIVE (NEGATIVE); PROTEIN,URINE NEGATIVE (NEGATIVE); UROBILINOGEN,URINE 0.2 EU/dL (<2.0)
[2024-07-17 15:26] LABS: A/G RATIO 1.1 (0.9-1.6); ALBUMIN 3.8 g/dL (3.4-5.0); BILIRUBIN TOTAL 0.5 mg/dL (0.2-1.0); CALCIUM 9.6 mg/dL (8.5-10.1); CARBON DIOXIDE,CO2 27.2 mmol/L (21.0-32.0); CREATININE 0.8 mg/dL (0.6-1.0); EST CRCL DRUG DOSING (CG) 78.87 mL/min; POTASSIUM,K 4.2 mmol/L (3.5-5.1); PROTEIN TOTAL,TP 7.4 g/dL (6.4-8.2)
[2024-07-17 15:34] LABS: CORONAVIRUS COVID-19 NAA NEGATIVE (NEGATIVE); INFLUENZA A NAA NEGATIVE (NEGATIVE); INFLUENZA B NAA NEGATIVE (NEGATIVE)
== END 2024-07-17 17:20 | disposition home or self-care (01) ==
LOC: MW.ED 13:52
DX: M79.7 Fibromyalgia (principal); R42 Dizziness and giddiness; K21.9 Gastro-esophageal reflux disease without esophagitis; Z86.16 Personal history of COVID-19; Z79.899 Other long term (current) drug therapy; Z79.84 Long term (current) use of oral hypoglycemic drugs; Z88.8 Allergy status to other drugs, medicaments and biological substances; Z88.1 Allergy status to other antibiotic agents
CPT/HCPCS: 0240U; 36415; 70450; 71046; 73000; 80053; 81003; 83690; 84484; 84703; 85025; 93005; 96360; 99284; J7030; 93010; 99285

== ENCOUNTER 2025-06-15 13:27 | Emergency (ER) | payer SELFPAY ==
[2025-06-15 15:24] LABS: BASOPHILS ABSOLUTE AUTO 0.06 K/uL (0.00-0.20); BASOPHILS PERCENT AUTO 0.7 % (0.0-1.0); EOSINOPHILS ABSOLUTE AUTO 0.27 K/uL (0.00-0.45); EOSINOPHILS PERCENT AUTO 3.1 % (0.0-6.0); IMMATURE GRAN ABSOLUTE AUTO 0.03 K/uL (0.00-0.05); IMMATURE GRAN PERCENT AUTO 0.3 % (0.0-0.4); LYMPHOCYTES ABSOLUTE AUTO 3.56 K/uL (1.00-4.80); LYMPHOCYTES PERCENT AUTO 41.1 % (24.0-44.0); MEAN PLATELET VOLUME 11.0 fL (9.4-12.3); MONOCYTES ABSOLUTE AUTO 0.64 K/uL (0.00-0.80); MONOCYTES PERCENT AUTO 7.4 % (0.0-8.0); NEUTROPHILS ABSOLUTE AUTO 4.10 K/uL (1.80-7.70); NEUTROPHILS PERCENT AUTO 47.4 % (41.0-71.0); NRBC ABSOLUTE 0.00 K/uL (0.00-0.02); NRBC PERCENT 0.0 /100WBC (0.0-0.2); PLATELET COUNT,PLT 299 K/uL (150-400); RED BLOOD CELL COUNT 4.69 M/uL (4.10-5.30); WHITE BLOOD CELL COUNT,WBC 8.66 K/uL (3.9-11.3)
[2025-06-15 16:02] LABS: A/G RATIO 1.0 (0.9-1.6); ALANINE AMINOTRANSFERASE,ALT 100.0 IU/L (14-63); ASPARTATE AMNIOTRANSFERASE,AST 56.0 IU/L (15-37); BILIRUBIN TOTAL 0.4 mg/dL (0.2-1.0); BLOOD UREA NITROGEN,BUN 8.0 mg/dL (7.0-18.0); CARBON DIOXIDE,CO2 26.6 mmol/L (21.0-32.0); CHLORIDE,CL 102.0 mmol/L (98-107); CREATININE 0.8 mg/dL (0.6-1.0); EST CRCL DRUG DOSING (CG) 78.1 mL/min; GLUCOSE RANDOM 108.0 mg/dL (74-106); POTASSIUM,K 4.4 mmol/L (3.5-5.1); PRO B-TYPE NATRIUR PEPT,BNPPRO 42.0 pg/mL (0-125); PROTEIN TOTAL,TP 7.6 g/dL (6.4-8.2); SODIUM,NA 138.0 mmol/L (136-145)
[2025-06-15 16:04] LABS: ESTIMATED GFR 96.0 mL/min (>60)
== END 2025-06-15 16:49 | disposition home or self-care (01) ==
LOC: MW.ED 13:27
DX: R60.0 Localized edema (principal); I10 Essential (primary) hypertension; Z75.3 Unavailability and inaccessibility of health-care facilities; Z79.899 Other long term (current) drug therapy; Z88.6 Allergy status to analgesic agent; Z88.0 Allergy status to penicillin; Z88.8 Allergy status to other drugs, medicaments and biological substances
CPT/HCPCS: 36415; 80053; 83880; 85025; 85379; 99283; 99284